=== PATIENT | male | born 1950 | race Caucasian/White ===

== ENCOUNTER 2022-06-18 07:52 | Observation (INO) ==
[2022-06-18 08:12] LABS: Basophils # (auto) 0.06 K/uL (0-0.2); Basophils % (auto) 0.9 %; Eosinophils % (auto) 7.3 %; Hematocrit (blood only) 44.2 % (40.1-51.0); Hemoglobin 15.6 g/dl (14.0-18.0); Immature Granulocytes # (auto) 0.02 K/uL (0.00-0.02); Immature Granulocytes % (auto) 0.3 %; Lymphocytes # (auto) 1.59 K/uL (1.2-3.4); Lymphocytes % (auto) 23.3 %; Mean Corpuscular Hemoglobin 30.9 pg (25.0-34.0); Mean Corpuscular Hgb Conc 35.3 g/dL (32.0-36.0); Mean Corpuscular Volume 87.5 fL (80.0-100.0); Mean Platelet Volume 9.7 fL (9.4-12.4); Monocytes # (auto) 0.63 K/uL (0.24-0.82); Monocytes % (auto) 9.2 %; Neutrophils # (auto) 4.03 K/uL (1.4-6.5); Platelet Count 251 K/uL (130-400); RDW Coefficient of Variation 13.3 % (11.5-14.5); RDW Standard Deviation 42.1 fL (36.4-46.3); Red Blood Count 5.05 M/uL (4.63-6.08); White Blood Count 6.83 K/ul (4.8-10.8)
--- NOTE | 2022-06-18 08:12 | Emergency Department Note ---
Impression & Plan Chest pain ED Provider Note NAME: RED BONNER AGE: 72 SEX: M : 1950 ARRIVES VIA: Ambulance INFORMANT: Patient, EMS ED PROVIDER(S): Laureano Martinez DO CHIEF COMPLAINT: Chest pain HPI: The patient is a 72-year-old male who presented to the emergency department for an evaluation of chest pain. The patient states he been having intermittent episodes of chest pain over the course the last 5 days. He does have a history of coronary artery bypass. He has not had a stress test or heart catheterization recently. He denies having any fever or cough. He denies having any nausea or vomiting. The patient himself states he has no chest pain at this time. He was treated with 4 baby aspirin and nitroglycerin prior to arrival. He states the pain was a pressure over the left side of his chest. The patient recently was evaluated preoperatively for knee replacement. He is scheduled to have knee replacement in 1 week. He denies having any lower extremity swelling. He denies having orthopnea. The patient denies having any abdominal pain nausea vomiting or diarrhea. ROS: See above HPI for pertinent positives & negatives. A total of 10 systems reviewed and were otherwise negative. PAST MEDICAL HISTORY: See Below PAST SURGICAL HISTORY: See Below FAMILY HISTORY: See Below SOCIAL HISTORY: See Below HOME MEDICATIONS: See Below ALLERGIES: See Below VITALS: See Below PHYSICAL EXAMINATION: GENERAL: Patient is awake alert in no acute distress patient is resting comfortably and showing no signs of anxiety EYES: The conjunctivae are clear. The pupils are round and reactive. EARS, NOSE, MOUTH AND THROAT: The nose is without any evidence of any deformity. NECK: The neck is nontender and supple. RESPIRATORY: Normal respiratory effort is noted there is no evidence of wheezing rhonchi or rales CARDIOVASCULAR: Regular rate and rhythm noted there no murmurs rubs or gallops normal S1 normal S2. GASTROINTESTINAL: The abdomen is soft. Abdomen is nontender. MUSCULOSKELETAL/EXTREMITIES: There is no evidence of gross deformity full range of motion is noted in the hips and shoulders. SKIN: There is no obvious evidence of any rash. There are no petechiae, pallor or cyanosis noted. NEUROLOGIC: Patient is awake alert and oriented x3 MEDICAL DECISION MAKING: The patient is a 72-year-old male who presented to the emergency department for an evaluation of chest pain. The patient describes anterior chest pain which did improve with nitroglycerin and aspirin. He does have a history of coronary artery bypass grafting in the past. I discussed the patient's laboratory and radiographic studies with him. I discussed the limitations of the emergency department work-up for chest pain with him. Ultimately given his risk factors I discussed his case with his primary heavy coil winder. The patient was felt to be a good candidate for inpatient management as well as stress testing. For this reason I discussed his case with the on-call [facility]. They have agreed to evaluate the patient in the emergency department for further management and disposition. Triage Nursing notes reviewed. Prior medical records reviewed Vital Signs: reviewed and remarkable for no significant abnormalities Differential diagnosis: Cardiac ischemia, aortic dissection, pulmonary embolism, pneumothorax, pneumonia, pericarditis, myocarditis, esophageal rupture, GERD, cholecystitis, pancreatitis, musculoskeletal, as well as other pathologies. ER treatment provided: See below Diagnostics interpreted by me: ECG: EKG was obtained in the emergency department. My interpretation is sinus bradycardia 59 bpm. There is no ectopy. Left bundle branch block pattern was favored. This was compared to a tracing from June 12, 2022. No changes were noted. A prehospital EKG was also reviewed. My interpretation is sinus rhythm at 62 bpm. There is no ectopy. No acute ST segment elevation was noted but there was some depressions noted in the low lateral leads. Cardiac Monitoring: An order was placed for continuous cardiac monitoring. The monitor shows a rate of 57 bpm with sinus bradycardia. Laboratory studies: As stated above and show below. Imaging studies: See below Consultation(s): I discussed this case with Dr. Cheng who is the patient's primary heavy coil winder I discussed this case with Dr. Celaya who is on for [facility] Past Med/Surg History Medical History (Updated 06/18/22 @ 14:23 by Laureano Martinez DO) Abdominal aortic aneurysm s/p repair (2018) Anxiety Coronary artery disease s/p CABG x2 (1993) GERD (gastroesophageal reflux disease) Hyperlipidemia Kidney stones PASSED ON OWN Myocardial Infarction 1993 Surgical History History of cardiac cath Most recent > no stents History of colonoscopy 2021 History of open heart surgery CABG x2 (1993) S/P AAA (abdominal aortic aneurysm) repair 2018 ([facility]/[place], [place]) S/P appendectomy Family History Father Heart disease Mother Mental disorder Brother Cancer Uncle Family history of diabetes mellitus Social History Smoking Status: Never smoker Second Hand Exposure: No; Do You Dip or Chew Tobacco: No; Tobacco Cessation Education Requested by Patient: No Hx Alcohol Use: Yes Alcohol type: beer Hx Substance Use: No Preferred Language: Finnish Communication Ability: Effective Monitor Technician Required: No Beliefs That Will Affect Care: None Current Living Situation: Spouse current occupational status: retired Other Information That Helps Us Care for You: No Feels Safe at Home: Yes Safety Concerns: Feels Safe At This Time Assistive Devices: None Allergies Allergies Allergy/AdvReac Type Severity Reaction Status Date / Time No Known Allergies Allergy Verified 05/22/22 09:34 Home Meds Home Medications Medication Instructions Recorded Confirmed aspirin 81 mg tablet,delayed 81 mg PO QPM 03/05/21 05/22/22 release coenzyme Q10 100 mg capsule 100 mg PO QAM 03/05/21 05/22/22 gabapentin 100 mg capsule 100 mg PO TID 03/05/21 05/22/22 glucosamine-chondroitin 250 mg-200 1 tab PO QAM 03/05/21 05/22/22 mg tablet (Osteo Bi-Flex) rosuvastatin 10 mg tablet 10 mg PO QPM 03/05/21 05/22/22 diclofenac sodium 1 % topical gel 2 g topical QID PRN Pain 05/22/22 05/22/22 fluticasone propionate 50 2 spray intranasal QAM 05/22/22 05/22/22 mcg/actuation nasal spray,suspension ibuprofen 200 mg capsule 200 mg PO BID 05/22/22 05/22/22 multivitamin 1 tab PO QAM 05/22/22 05/22/22 Results & Data (ED) Vital Signs Vital Signs - 24 hr 06/18/22 08:09 06/18/22 08:09 06/18/22 10:06 Temperature 36.8 C Temperature Source Oral Pulse Rate 66 66 Pulse Rate [Finger] 54 L Respiratory Rate 20 18 18 Respiratory Depth Normal Blood Pressure 131/79 Blood Pressure [Right Arm] 128/82 Blood Pressure Mean 96 Blood Pressure Mean [Right Arm] 97 Blood Pressure Position [Right Arm] Semi-fowlers Pulse Oximetry 98 98 96 Oxygen Delivery Method Room Air Room Air Room Air Sepsis Recent Fever Within 48 Hours No Sepsis New/Unexplained Change in Mental Status No Sepsis Action Taken by Nursing No Action Required Home Medications Current Medication List: was personally reviewed by me Laboratory Data Attestation: I reviewed the patient's lab results. Result diagrams: 06/18/22 08:00 06/18/22 08:00 Lab Results 06/18/22 06/18/22 06/18/22 Range/Units 08:00 08:00 08:00 WBC 6.83 (4.8-10.8) K/ul RBC 5.05 (4.63-6.08) M/uL Hgb 15.6 (14.0-18.0) g/dl Hct 44.2 (40.1-51.0) % MCV 87.5 (80.0-100.0) fL MCH 30.9 (25.0-34.0) pg MCHC 35.3 (32.0-36.0) g/dL RDW Std Deviation 42.1 (36.4-46.3) fL RDW Coeff of Viki 13.3 (11.5-14.5) % Plt Count 251 (130-400) K/uL MPV 9.7 (9.4-12.4) fL Immature Gran % (Auto) 0.3 % Neut % (Auto) 59.0 % Lymph % (Auto) 23.3 % [place] % (Auto) 9.2 % Eos % (Auto) 7.3 % Baso % (Auto) 0.9 % Neut # (Auto) 4.03 (1.4-6.5) K/uL Lymph # (Auto) 1.59 (1.2-3.4) K/uL [place] # (Auto) 0.63 (0.24-0.82) K/uL Eos # (Auto) 0.50 (0-0.50) K/uL Baso # (Auto) 0.06 (0-0.2) K/uL Immature Gran # (Auto) 0.02 (0.00-0.02) K/uL PT 10.9 (9.0-12.0) Seconds INR 1.0 (0.9-1.1) APTT 25.1 (21.0-31.0) Seconds PTT Ratio 0.9 Sodium 138 (136-145) mmol/L Potassium 4.0 (3.5-5.1) mmol/L Chloride 105 (98-107) mmol/L Carbon Dioxide 26 (21-32) mmol/L Anion Gap 7 (3-11) BUN 19 (6-23) mg/dl Creatinine 1.07 (0.6-1.4) mg/dl Est Cr Clr Drug Dosing 76.4 ml/min Est GFR ( Amer) 79.4 ml/min Est GFR (Non-Af Amer) 68.5 ml/min BUN/Creatinine Ratio 17.8 (10-20) Glucose 104 H (70-99(Fasting)) mg/dl Calcium 9.3 (8.5-10.1) mg/dl Total Bilirubin 0.9 (0.2-1.0) mg/dl AST 25 (13-39) U/L ALT 30 (7-52) U/L Alkaline Phosphatase 63 (34-104) U/L Troponin I High Sens 7.8 (0-20) pg/ml Total Protein 7.4 (6.0-8.3) gm/dl Albumin 4.5 (3.4-5.0) gm/dl Globulin 2.9 (2.5-4.0) gm/dl Albumin/Globulin Ratio 1.6 (0.9-2) Lipase 16 (11-82) U/L SARS-CoV-2, RNA, NAAT (NEGATIVE) 06/18/22 06/18/22 Range/Units 08:08 10:21 WBC (4.8-10.8) K/ul RBC (4.63-6.08) M/uL Hgb (14.0-18.0) g/dl Hct (40.1-51.0) % MCV (80.0-100.0) fL MCH (25.0-34.0) pg MCHC (32.0-36.0) g/dL RDW Std Deviation (36.4-46.3) fL RDW Coeff of Viki (11.5-14.5) % Plt Count (130-400) K/uL MPV (9.4-12.4) fL Immature Gran % (Auto) % Neut % (Auto) % Lymph % (Auto) % One[place] % (Auto) % Eos % (Auto) % Baso % (Auto) % Neut # (Auto) (1.4-6.5) K/uL Lymph # (Auto) (1.2-3.4) K/uL [place] # (Auto) (0.24-0.82) K/uL Eos # (Auto) (0-0.50) K/uL Baso # (Auto) (0-0.2) K/uL Immature Gran # (Auto) (0.00-0.02) K/uL PT (9.0-12.0) Seconds INR (0.9-1.1) APTT (21.0-31.0) Seconds PTT Ratio Sodium (136-145) mmol/L Potassium (3.5-5.1) mmol/L Chloride (98-107) mmol/L Carbon Dioxide (21-32) mmol/L Anion Gap (3-11) BUN (6-23) mg/dl Creatinine (0.6-1.4) mg/dl Est Cr Clr Drug Dosing ml/min Est GFR ( Amer) ml/min Est GFR (Non-Af Amer) ml/min BUN/Creatinine Ratio (10-20) Glucose (70-99(Fasting)) mg/dl Calcium (8.5-10.1) mg/dl Total Bilirubin (0.2-1.0) mg/dl AST (13-39) U/L ALT (7-52) U/L Alkaline Phosphatase (34-104) U/L Troponin I High Sens 6.1 (0-20) pg/ml Total Protein (6.0-8.3) gm/dl Albumin (3.4-5.0) gm/dl Globulin (2.5-4.0) gm/dl Albumin/Globulin Ratio (0.9-2) Lipase (11-82) U/L SARS-CoV-2, RNA, NAAT NEGATIVE (NEGATIVE) Administered Medications Gabapentin (Gabapentin 100 Mg Cap) 100 mg PO TID [facility] Stop: 07/18/22 13:59 Last Admin: 06/18/22 15:16 Dose: 100 mg Documented By: ZS Rosuvastatin Calcium (Rosuvastatin Calcium 10 Mg Tab) 10 mg PO QAM MARY Stop: 07/18/22 13:51 Last Admin: 06/18/22 15:16 Dose: 10 mg Documented By: ZS Discontinued Medications Famotidine (Famotidine 20 Mg Tab) 20 mg PO NOW STA Stop: 06/18/22 11:05 Last Admin: 06/18/22 11:40 Dose: 20 mg Documented By: TRH Pantoprazole Sodium (Pantoprazole 40 Mg Tab) 40 mg PO NOW STA Stop: 06/18/22 11:05 Last Admin: 06/18/22 11:40 Dose: 40 mg Documented By: TRH Imaging Data Radiologist's Impression: Chest X-Ray 06/18/22 07:58 XR chest 1V portable HISTORY: Atypical Chest Pain COMPARISON: Chest 06/09/2022. FINDINGS: No pneumothorax. No pleural effusions. There are low lung volumes. The cardiac silhouette remains top normal in size. There are poststernotomy changes and a tortuous thoracic aorta, unchanged. A few bibasilar linear densities favor subsegmental atelectasis or scarring. This remains unchanged. Otherwise, no new focal lung consolidations to suggest a pneumonia. No evidence for pulmonary edema. IMPRESSION: No significant change compared to the prior study. No acute process. ACT 112: Negative or not required by law. Electronically signed by: Olvin Bangura M.D. 06/18/2022 8:35 AM Discharge Plan Visit Data Chief Complaint: Chest Pain Stated Complaint: CHEST PRESSURE ED Provider: Laureano Martinez Discharge Problem: Chest pain Patient Disposition: Admitted As Inpatient Discharge Instructions Interventions: ED Discharge Assessment Last Done: 06/18/22 13:33 : Chest pain Qualifiers: Chest pain type: unspecified Qualified Code(s): R07.9 - Chest pain, unspecified
[2022-06-18 08:35] LABS: Partial Thromboplastin Ratio 0.9; Partial Thromboplastin Time 25.1 Seconds (21.0-31.0); Prothrombin Time 10.9 Seconds (9.0-12.0)
--- NOTE | 2022-06-18 08:36 | XRay Report ---
XR chest 1V portable HISTORY: Atypical Chest Pain COMPARISON: Chest 06/09/2022. FINDINGS: No pneumothorax. No pleural effusions. There are low lung volumes. The cardiac silhouette r emains top normal in size. There are poststernotomy changes and a tortuous thoracic aorta, unchanged. A few bibasilar linear densities favor subsegmental atelectasis or scarring. This remains unchanged. Otherwise, no new focal lung consolidations to suggest a pneumonia. No evidence for pulmonary edema. IMPRESSION: No significant change compared to the prior study. No acute process. ACT 112: Negative or not required by law. Electronically signed by: Olvin Bangura M.D. 06/18/2022 8:35 AM
[2022-06-18 08:40] LABS: Albumin Globulin Ratio 1.6 (0.9-2); Albumin Level 4.5 gm/dl (3.4-5.0); BUN Creatinine Ratio 17.8 (10-20); Bilirubin,Total 0.9 mg/dl (0.2-1.0); Calcium 9.3 mg/dl (8.5-10.1); Creatinine Clr Calc Pharmacy 76.4 ml/min; Est GFR (African American) 79.4 ml/min; Est GFR (Non-African American) 68.5 ml/min; Globulin 2.9 gm/dl (2.5-4.0); Total Protein 7.4 gm/dl (6.0-8.3); Troponin I High Sensitivity 7.8 pg/ml (0-20)
--- NOTE | 2022-06-18 10:18 | History & Physical Report ---
Date of Service June 18, 2022 History of Present Illness Primary Care Provider: Lori Horton MD Peter Mcgrath is a 72-year-old male with past medical history of CAD s/p CABG, arthritis, and peripheral neuropathy who presents today with chest pain. Allergies Allergy/AdvReac Type Severity Reaction Status Date / Time No Known Allergies Allergy Verified 05/22/22 09:34 Home Medications Medication Instructions Recorded Confirmed Type aspirin 81 mg tablet,delayed 81 mg PO QPM 03/05/21 05/22/22 History release coenzyme Q10 100 mg capsule 100 mg PO QAM 03/05/21 05/22/22 History gabapentin 100 mg capsule 100 mg PO TID 03/05/21 05/22/22 History glucosamine-chondroitin 250 mg-200 1 tab PO QAM 03/05/21 05/22/22 History mg tablet (Osteo Bi-Flex) rosuvastatin 10 mg tablet 10 mg PO QPM 03/05/21 05/22/22 History diclofenac sodium 1 % topical gel 2 g topical QID PRN Pain 05/22/22 05/22/22 History fluticasone propionate 50 2 spray intranasal QAM 05/22/22 05/22/22 History mcg/actuation nasal spray,suspension ibuprofen 200 mg capsule 200 mg PO BID 05/22/22 05/22/22 History multivitamin 1 tab PO QAM 05/22/22 05/22/22 History Past Med/Surg History Medical History Abdominal aortic aneurysm s/p repair (2018) Anxiety Coronary artery disease s/p CABG x2 (1993) GERD (gastroesophageal reflux disease) Hyperlipidemia Kidney stones PASSED ON OWN Myocardial Infarction 1993 Surgical History History of cardiac cath Most recent > no stents History of colonoscopy 2021 History of open heart surgery CABG x2 (1993) S/P AAA (abdominal aortic aneurysm) repair 2018 ([facility]/[place], [place]) S/P appendectomy Family History Father Heart disease Mother Mental disorder Brother Cancer Uncle Family history of diabetes mellitus Social History Smoking Status: Never smoker Second Hand Exposure: No; Hx Alcohol Use: Yes Alcohol type: beer Hx Substance Use: No Preferred Language: Israeli Communication Ability: Effective Flexo Operator Required: No Beliefs That Will Affect Care: None Current Living Situation: Spouse current occupational status: retired Feels Safe at Home: Yes Assistive Devices: Brace/Splint/Immobilizer, Cane, Glasses and Hearing Aid - Bilateral Results & Data Results & Data ([facility]) Vital Signs (Past 12 Hours) Vital Signs Temp Pulse Pulse Resp BP BP Pulse Ox 06/18/22 10:06 54 L 18 128/82 96 06/18/22 08:09 66 18 98 06/18/22 08:09 36.8 C 66 20 131/79 98 O2 Del Method 06/18/22 10:06 Room Air 06/18/22 08:09 Room Air 06/18/22 08:09 Room Air PG Care Time/CCT Total # of Minutes Spent Total Time Spent with Patient: Total time spent is greater than 50% in coordination of care (as documented) at patient's floor/unit and/or counseling patient: Coding
--- NOTE | 2022-06-18 10:26 | History & Physical Report ---
Date of Service June 18, 2022 Assessment & Plan (1) Chest pain, rule out acute myocardial infarction: Plan: Low likelihood of cardiac chest pain given history and negative high sensitivity troponins. Had nitroglycerin and aspirin en route. Serial troponins q6h over the next 24 hours. NM Frances per his diagram clerk recommendation given his upcoming operation - discussed with Dr Cheng on admission. Suspect can be discharged tomorrow if workup is negative. More likely GERD related to increased recent stress - will give pantoprazole 40mg PO now then daily and famotidine 20mg PO now (for more rapid relief). (2) Peripheral neuropathy: Plan: Reportedly idiopathic Continue his usual gabapentin dosing (3) GERD (gastroesophageal reflux disease): Plan: Start pantoprazole 40mg PO daily Famotidine 20mg PO Plan VTE Prophylaxis - SCDs Diet - heart healthy, NPO at midnight Disposition - observation status to med/tele Admission and Anticipated Discharge Date Admission Date: June 18, 2022 History of Present Illness Chief Complaint: Chest pain Primary Care Provider: Lori Horton MD Peter Mcgrath is a 72 year old male with known coronary artery disease and CABG x2 in 1993 who presents to the ER with chest pain. He reports 5 days of feeling anxious with nervousness, reduced sleep and burping secondary to his upcoming hip operation next Wednesday and his sister living in [place] with the current hurricane. He had requested medication for anxiety but his primary care physician did not want to prescribe anything. He reports being up most of last night and not sleeping well. This morning after waking up around 5am he noticed left sided chest pain. Severity 4-5/10, no radiation, pinching/tightening feeling. He reports this felt different to his prior heart attack and his GERD. Initially he didn't take anything for this until his gave him two 81mg PO aspirin. The pain lasted for 3 hours until he received a nitroglycerin tab on route to the hospital. He reports associated burping which was also present with his prior heart attack. He reports not taking ibuprofen for the last week in preparation for his hip operation but has been taking all his other medication regularly. In the ER, initial troponin was negative, EKG showed no ischemic changes. His case was discussed with his diagram clerk who recommended nuclear medicine lexiscan to assess risk of upcoming operation. Allergies Allergy/AdvReac Type Severity Reaction Status Date / Time No Known Allergies Allergy Verified 05/22/22 09:34 Home Medications Medication Instructions Recorded Confirmed Type aspirin 81 mg tablet,delayed 81 mg PO QPM 03/05/21 05/22/22 History release coenzyme Q10 100 mg capsule 100 mg PO QAM 03/05/21 05/22/22 History gabapentin 100 mg capsule 100 mg PO TID 03/05/21 05/22/22 History glucosamine-chondroitin 250 mg-200 1 tab PO QAM 03/05/21 05/22/22 History mg tablet (Osteo Bi-Flex) rosuvastatin 10 mg tablet 10 mg PO QPM 03/05/21 05/22/22 History diclofenac sodium 1 % topical gel 2 g topical QID PRN Pain 05/22/22 05/22/22 History fluticasone propionate 50 2 spray intranasal QAM 05/22/22 05/22/22 History mcg/actuation nasal spray,suspension ibuprofen 200 mg capsule 200 mg PO BID 05/22/22 05/22/22 History multivitamin 1 tab PO QAM 05/22/22 05/22/22 History Past Med/Surg History Medical History (Updated 06/18/22 @ 10:39 by Edwin Patterson MD) Abdominal aortic aneurysm s/p repair (2018) Anxiety Coronary artery disease s/p CABG x2 (1993) GERD (gastroesophageal reflux disease) Hyperlipidemia Kidney stones PASSED ON OWN Myocardial Infarction 1993 Surgical History History of cardiac cath Most recent > no stents History of colonoscopy 2021 History of open heart surgery CABG x2 (1993) S/P AAA (abdominal aortic aneurysm) repair 2019 ([facility]/[place], [place]) S/P appendectomy Family History Father Heart disease Mother Mental disorder Brother Cancer Uncle Family history of diabetes mellitus Social History Smoking Status: Never smoker Second Hand Exposure: No; Hx Alcohol Use: Yes Alcohol type: beer Hx Substance Use: No Preferred Language: Setswana Communication Ability: Effective Process Control Technician Required: No Beliefs That Will Affect Care: None Current Living Situation: Spouse current occupational status: retired Feels Safe at Home: Yes Assistive Devices: Brace/Splint/Immobilizer, Cane, Glasses and Hearing Aid - Bilateral Review of Systems Review of Systems: All systems reviewed & are unremarkable except as noted in HPI & below Reports phlegm coming from his throat for the last year. Physical Exam Constitutional: WD/WN, vitals as above Eyes: + anicteric sclerae; normal pupil size ENMT: external ear and nose normal, oropharynx normal Neck: trachea midline, no thyromegaly Respiratory: normal respiratory effort, lungs clear to auscultation Cardiovascular: RRR, no murmur, no edema Gastrointestinal (Abdomen): normal bowel sounds, soft, nontender, no hepatosplenomegaly Musculoskeletal: no cyanosis or clubbing, extremities motor strength 5/5 Skin: no rashes, warm and dry Neurologic: moves all extremities and awake; not confused Psychiatric: A+Ox3, euthymic affect Genitourinary: no CVA tenderness Results & Data Results & Data ([facility]) Vital Signs (Past 12 Hours) Vital Signs Temp Pulse Pulse Resp BP BP Pulse Ox 06/18/22 10:06 54 L 18 128/82 96 06/18/22 08:09 66 18 98 06/18/22 08:09 36.8 C 66 20 131/79 98 O2 Del Method 06/18/22 10:06 Room Air 06/18/22 08:09 Room Air 06/18/22 08:09 Room Air Laboratory Results Abnormal lab results 06/18/22 Range/Units 08:00 Glucose 104 H (70-99(Fasting)) mg/dl Diagnostic Findings XR chest 1V portable HISTORY: Atypical Chest Pain COMPARISON: Chest 06/09/2022. FINDINGS: No pneumothorax. No pleural effusions. There are low lung volumes. The cardiac silhouette remains top normal in size. There are poststernotomy changes and a tortuous thoracic aorta, unchanged. A few bibasilar linear densities favor subsegmental atelectasis or scarring. This remains unchanged. Otherwise, no new focal lung consolidations to suggest a pneumonia. No evidence for pulmonary edema. IMPRESSION: No significant change compared to the prior study. No acute process. Medications Administered ER Medications Given: None ECG Indication: chest pain Rate (beats per minute): 59 Rhythm: sinus bradycardia Findings: no acute ischemic change Comparison ECG Date: from (June 09, 2022) Change: no significant change Code Status & VTE Plan Code Status Full VTE Prophylaxis Plan VTE Prophylaxis will be ordered: Yes Reason for no VTE drug order: Treatment not indicated PG Care Time/CCT Total # of Minutes Spent Total Time Spent with Patient: Total time spent is greater than 50% in coordination of care (as documented) at patient's floor/unit and/or counseling patient: Coding Level of Care Code INT OBSERVATION CARE 70M LVL 3 Diagnoses Chest pain, rule out acute myocardial infarction R07.9 Peripheral neuropathy G62.9 GERD (gastroesophageal reflux disease) K21.9
[2022-06-18] MEDS ORDERED: PANTOprazole 40 MG TAB PO STA (11:04)
[2022-06-18] MEDS ORDERED: FAMOTIDINE 20 MG TAB PO STA (11:04)
[2022-06-18] MEDS ORDERED: ACETAMINOPHEN 325 MG TAB PO PRN (13:52)
[2022-06-18] MEDS ORDERED: POLYETHYLENE (MIRALAX) 17 GM PACK PO PRN (13:52)
[2022-06-18] MEDS ORDERED: ONDANSETRON INJ 2 MG/ML 2 ML VIAL IV PRN (13:52)
[2022-06-18] MEDS: ROSUVASTATIN CALCIUM 10 MG TAB PO SCH (15:16)
[2022-06-18] MEDS: GABAPENTIN 100 MG CAP PO SCH ×2 (15:16→20:34)
[2022-06-18] MEDS ORDERED: ASPIRIN 81 MG ECTAB PO SCH (21:00)
[2022-06-18] MEDS ORDERED: IBUPROFEN 200 MG TAB PO SCH (21:00)
--- NOTE | 2022-06-18 21:32 | Electrocardiogram Report ---
Test Reason : Blood Pressure : / mmHG Vent. Rate : 059 BPM Atrial Rate : 059 BPM P-R Int : 190 ms QRS Dur : 116 ms QT Int : 438 ms P-R-T Axes : 012 -36 068 degrees QTc Int : 433 ms Sinus bradycardia Left axis deviation Non-specific intra-ventricular conduction delay Abnormal ECG When compared with ECG of 09-JUN-2022 16:16, No significant change was found Confirmed by Flakito Reynolds ([id number]) on 06/18/2022 9:32:20 PM Referred By: Confirmed By:Flakito Reynolds
[2022-06-19] MEDS ORDERED: REGADENOSON 0.4 MG/5 ML SYR IV ONE (07:45)
[2022-06-19] MEDS: GABAPENTIN 100 MG CAP PO SCH ×2 (07:48→13:32)
[2022-06-19] MEDS: ROSUVASTATIN CALCIUM 10 MG TAB PO SCH (07:49)
[2022-06-19] MEDS ORDERED: FLUTICASONE PROPIONATE NA SPR 16 GM BTL NAE SCH (09:00)
[2022-06-19] MEDS ORDERED: NON-FORMULARY MEDICATION (Coenzyme Q10 100 mg capsule) PO SCH (09:00)
[2022-06-19] MEDS ORDERED: NON-FORMULARY MEDICATION (Glucosamine-Chondroitin [Osteo Bi-Flex] 250-200 mg tablet) PO SCH (09:00)
[2022-06-19] MEDS ORDERED: MULTIVITAMIN TAB PO SCH (09:00)
--- NOTE | 2022-06-19 14:42 | Hospitalist Progress Note ---
Date of Service June 19, 2022 Assessment & Plan (1) Chest pain, rule out acute myocardial infarction: Plan: Low likelihood of cardiac chest pain given history and negative high sensitivity troponins. Had nitroglycerin and aspirin en route. Serial troponins q6h over the next 24 hours negative NM Lexiscan has been done , official report pending (2) Peripheral neuropathy: Plan: Reportedly idiopathic Continue his usual gabapentin dosing (3) GERD (gastroesophageal reflux disease): Plan: Start pantoprazole 40mg PO daily Famotidine 20mg PO Plan VTE Prophylaxis - SCDs Diet - heart healthy, NPO at midnight Disposition - observation status to med/tele Admission and Anticipated Discharge Date Admission Date: June 18, 2022 Subjective patient seen and examined, said his chest pain has resolved Review of Systems Review of Systems: All systems reviewed are negative, apart from the ones contained in the history. Physical Exam Physical Exam: The patient is awake, alert and oriented 3, well developed and well nourished, normocephalic and atraumatic, lying in bed and in no acute distress. HEENT--PERRL, EOMI, mucous membranes and oropharynx mildly dry Neck--supple. No JVD. No bruits. Thyroid normal, trachea midline, no adenopathy. Heart--normal S1 and S2. No murmurs, rubs or gallops. Lungs--clear bilaterally, no respiratory distress, no accessory muscle use. Abdomen--normal bowel sounds and soft. Mild epigastric and left sided abdominal pain Extremities--no cyanosis or clubbing. No edema. Dermatologic--normal skin turgor, normal color, no abnormal lymph nodes, no rash. Neurologic--cranial nerves II through XII grossly intact. Rheumatologic--normal range of motion. Psychiatric--normal affect. Results & Data Results & Data ([facility]) Vital Signs (Past 12 Hours) Vital Signs Temp Pulse Pulse Resp BP Pulse Ox O2 Del Method 06/19/22 08:00 64 06/19/22 06:34 97.7 F 61 18 108/75 97 Room Air 06/19/22 03:37 97.9 F 55 L 16 112/64 98 Room Air PG Care Time/CCT Total # of Minutes Spent Total Time Spent with Patient: Total time spent is greater than 50% in coordination of care (as documented) at patient's floor/unit and/or counseling patient: Coding Level of Care Code 17618 Subseq Obs Care Lvl 2 Diagnoses Chest pain, rule out acute myocardial infarction R07.9 Peripheral neuropathy G62.9 GERD (gastroesophageal reflux disease) K21.9 Time Spent (min) 35
--- NOTE | 2022-06-19 14:45 | Myocardial Perfusion Study ---
Date of Service June 19, 2022 Myocardial Perfusion Study Blk Myocardial Perfusion Study Report [place] Act 112: Negative Procedure: 1. Myocardial perfusion study performed in multiple views/images 2. Lexiscan pharmacologic stress ECG Indications: 1. Chest pain Ordering physician: Edwin Patterson Procedural details: For the stress portion of the study, Lexiscan 0.4 mg was intravenously administered followed by a saline flush. This was followed by 33.2 mCi of technetium 99m Cardiolite, injected at 9:05 a.m. on 06/19/2022. 30 minutes following the injection, imaging of the heart was performed in multiple projections. For the rest portion of the study, 10.2 mCi technetium 99m Cardiolite was injected intravenously at 7:34 a.m. on 06/19/2022. 1 hour following the injection, imaging of the heart was performed in the same projections. Lexiscan stress ECG: Continuous ECG monitoring was performed with supervision and interpretation. Resting ECG demonstrated: Sinus rhythm 64 beats per minute. Maximum heart rate: Ninety-two bpm Maximal, age-predicted heart rate: 62 % Resting blood pressure: 115/79 mmHg Maximum blood pressure: 123/[address] changes: None Arrhythmia: None Symptoms: Mild woozy and warm sensation Findings: Rotating raw imaging demonstrated no significant lung uptake. There is no significant motion artifact. Heart size appeared normal. Myocardial perfusion demonstrated a small area of moderately reduced uptake involving the apex, which appeared to be fixed in post stress and rest imaging. There was no significant reversible defect to suggest ischemia. There was a hot spot in the anterolateral wall in post stress and rest images. Other wall segments appear to have normal perfusion. Ejection fraction: 52% Wall motion: Severe hypokinesis to akinesis of the apex. Otherwise, normal wall motion. No significant transient ischemic dilation. Impression: 1. Negative myocardial perfusion study for ischemia. 2. Apical infarct. 3. Severe hypokinesis to akinesis of the apex. 4. Normal LV systolic function. EF 52%. 5. Lexiscan induced wooziness/warm sensation. 6. Nondiagnostic Lexiscan ECG. [facility] Myocardial perfusion code Procedure Code Procedure 1: Myocardial Perfusion Codes: 24204 Cardiovascular Stress Test, multiple Procedure 2: Myocardial Perfusion Codes: 36364 Cardiovascular Stress Test, supervision only Procedure 3: Myocardial Perfusion Codes: 36056 Cardiovascular Stress Test, interpretat ion and report
--- NOTE | 2022-06-19 15:38 | Discharge Summary ---
Date of Service June 19, 2022 Admission HPI Per Admitting Provider Peter Mcgrath is a 72 year old male with known coronary artery disease and CABG x2 in 1993 who presents to the ER with chest pain. He reports 5 days of feeling anxious with nervousness, reduced sleep and burping secondary to his upcoming hip operation next Wednesday and his sister living in [place] with the current hurricane. He had requested medication for anxiety but his primary care physician did not want to prescribe anything. He reports being up most of last night and not sleeping well. This morning after waking up around 5am he noticed left sided chest pain. Severity 4-5/10, no radiation, pinching/tightening feeling. He reports this felt different to his prior heart attack and his GERD. Initially he didn't take anything for this until his gave him two 81mg PO aspirin. The pain lasted for 3 hours until he received a nitroglycerin tab on route to the hospital. He reports associated burping which was also present with his prior heart attack. He reports not taking ibuprofen for the last week in preparation for his hip operation but has been taking all his other medication regularly. In the ER, initial troponin was negative, EKG showed no ischemic changes. His case was discussed with his surgical training specialist who recommended nuclear medicine lexiscan to assess risk of upcoming operation. Principal Diagnosis chest pain Discharge Exam The patient is awake, alert and oriented 3, well developed and well nourished, normocephalic and atraumatic, lying in bed and in no acute distress. HEENT--PERRL, EOMI, mucous membranes and oropharynx mildly dry Neck--supple. No JVD. No bruits. Thyroid normal, trachea midline, no adenopathy. Heart--normal S1 and S2. No murmurs, rubs or gallops. Lungs--clear bilaterally, no respiratory distress, no accessory muscle use. Abdomen--normal bowel sounds and soft. Mild epigastric and left sided abdominal pain Extremities--no cyanosis or clubbing. No edema. Dermatologic--normal skin turgor, normal color, no abnormal lymph nodes, no rash. Neurologic--cranial nerves II through XII grossly intact. Rheumatologic--normal range of motion. Psychiatric--normal affect. Discharge Data Allergies Allergy/AdvReac Type Severity Reaction Status Date / Time No Known Allergies Allergy Verified 05/22/22 09:34 Consultations 06/18/22 09:33 ED Decision to Admit Stat Hospital Course (1) Chest pain, rule out acute myocardial infarction: Low likelihood of cardiac chest pain given history and negative high sensitivity troponins. Had nitroglycerin and aspirin en route. Serial troponins q6h over the next 24 hours negative NM Lexiscan was negative for ischemia (2) Peripheral neuropathy: Reportedly idiopathic Continue his usual gabapentin dosing (3) GERD (gastroesophageal reflux disease): Start pantoprazole 40mg PO daily Famotidine 20mg PO Plan VTE Prophylaxis - SCDs Diet - heart healthy, NPO at midnight Disposition - observation status to med/tele Total Time Total Time Spent Total Time Spent (In Minutes): 35 Discharge Plan Discharge Items Patient Disposition: Home - Self-Care Reason For Visit: CHEST PAIN Discharge Diagnosis: Non cardiac chest pain Activity: Resume your previous activity Non-emergency contact: Primary Care Provider and [employer] S[employer]er Call non-emergency contact if: you have any medication questions Follow-up/Referrals: Lori Horton MD [Primary Care Provider] - Diet: Regular Addtl Attending Provider Instructions: please make appointment to follow up with your regular PCP and surgical training specialist Pending Studies at Discharge: No Stand-Alone Forms: My [employer], Smoking Cessation Medications and DC Order Prescriptions: Continued rosuvastatin 10 mg tablet 10 mg PO QPM gabapentin 100 mg capsule 100 mg PO TID coenzyme Q10 100 mg capsule 100 mg PO QAM glucosamine-chondroitin [Osteo Bi-Flex] 250-200 mg tablet 1 tab PO QAM aspirin 81 mg tablet,delayed release (DR/EC) 81 mg PO QPM multivitamin Tablet 1 tab PO QAM ibuprofen 200 mg Capsule 200 mg PO BID fluticasone propionate 50 mcg/actuation [place],Suspension 2 spray INTRANASAL QAM Rx Instructions: administer into each nostril diclofenac sodium 1 % Gel 2 g TOPICAL QID PRN (Reason: Pain) Rx Instructions: apply to single elbow, wrist or hand; for hand includes palm/fingers/back of hand Discharge Orders: Discharge Order (Routine); Ordered 06/19/22 Ordered By: Carly Otto Admission Data Admit Date/Time: 06/18/22 10:22 Attending Provider: Carly Otto Admit Provider: Mary Ann Egan Primary Care Provider: Lori Horton Other Providers: Edwin Celaya Coding Level of Care Code D/C DAY MANAGEMENT >30 MINS Diagnoses Chest pain, rule out acute myocardial infarction R07.9 Peripheral neuropathy G62.9 GERD (gastroesophageal reflux disease) K21.9 Time Spent (min) 35
--- NOTE | 2022-06-19 21:30 | Electrocardiogram Report ---
Test Reason : Blood Pressure : / mmHG Vent. Rate : 065 BPM Atrial Rate : 065 BPM P-R Int : 190 ms QRS Dur : 108 ms QT Int : 438 ms P-R-T Axes : 058 -36 061 degrees QTc Int : 455 ms Normal sinus rhythm Left axis deviation Abnormal ECG When compared with ECG of 18-JUN-2022 07:59, No significant change was found Confirmed by Flakito Reynolds ([id number]) on 06/19/2022 9:30:21 PM Referred By: REFERRED SELF Confirmed By:Flakito Reynolds
== END 2022-06-19 16:00 | disposition home or self-care (01) ==
LOC: ED 07:52 → 2W 07:52 → SUATTDRO 10:22 → 2W 13:33
DX: I25.2 Old myocardial infarction; Z79.899 Other long term (current) drug therapy; I25.10 Atherosclerotic heart disease of native coronary artery without angina pectoris; Z79.82 Long term (current) use of aspirin; R07.9 Chest pain, unspecified; Z95.5 Presence of coronary angioplasty implant and graft; G62.9 Polyneuropathy, unspecified; K21.9 Gastro-esophageal reflux disease without esophagitis

== ENCOUNTER 2022-06-24 08:14 | Observation (INO) ==
--- NOTE | 2022-05-22 11:21 | PAT Medication Instructions ---
Medication Instructions Date of Service May 22, 2022 Home Medications aspirin 81 mg tablet,delayed release 81 mg PO QPM coenzyme Q10 100 mg capsule 100 mg PO QAM gabapentin 100 mg capsule 100 mg PO TID glucosamine-chondroitin 250 mg-200 mg tablet (Osteo Bi-Flex) 1 tab PO QAM rosuvastatin 10 mg tablet 10 mg PO QPM diclofenac sodium 1 % topical gel 2 g topical QID PRN fluticasone propionate 50 mcg/actuation nasal spray,suspension 2 spray intranasal QAM ibuprofen 200 mg capsule 200 mg PO BID multivitamin 1 tab PO QAM ASK your surgeon for instructions ibuprofen 200 mg capsule 200 mg PO BID STOP taking 2 weeks before surgery coenzyme Q10 100 mg capsule 100 mg PO QAM glucosamine-chondroitin 250 mg-200 mg tablet (Osteo Bi-Flex) 1 tab PO QAM STOP taking 24 hours before surgery diclofenac sodium 1 % topical gel 2 g topical QID PRN DO NOT take the morning of surgery multivitamin 1 tab PO QAM Take morning of surgery With a small sip of water, OTHERWISE NOTHING TO EAT OR DRINK AFTER MIDNIGHT: gabapentin 100 mg capsule 100 mg PO TID fluticasone propionate 50 mcg/actuation nasal spray,suspension 2 spray intranasal QAM Take evening before surgery aspirin 81 mg tablet,delayed release 81 mg PO QPM (unless directed otherwise by surgeon) gabapentin 100 mg capsule 100 mg PO TID rosuvastatin 10 mg tablet 10 mg PO QPM Other Notes If you have any questions please call us at [phone] or [phone] or [phone] or [phone]
--- NOTE | 2022-05-28 07:57 | History & Physical Report ---
Date of Service May 28, 2022 date of surgery: 06/24/22 Procedure: Left Total Knee Arthroplasty Surgeon: Jose Rocha Assessment & Plan (1) Arthritis of knee, left: Plan: Presents follow-up evaluation of his left knee pain. At last visit discussed possible total knee replacement, after discussing further care with his he would like to proceed with scheduling for his left total knee replacement. He is tried and failed previous cortisone injection as well as viscosupplementation without relief. X-rays reviewed which show advanced degenerative changes to left knee with [id number] changes osteophyte formation subchondral sclerosis. He would like to proceed with a patient-matched [employer] left total knee replacement at [facility]. We will plan on overnight stay secondary to part previous cardiac history. Will need cardiac clearance prior to his surgery as well. We will schedule for Iovera injection 2 weeks prior to his surgery, we will then discharge with home health physical therapy The risks and benefits have been discussed including, but not limited to, risk of infection, nerve injury, stiffness, loss of motion, failure to improve, etc. Reasonable outcomes and options of treatment were discussed. An explanation of appropriate alternatives to the procedure that may be advantageous were discussed and their risks and benefits, as well as the risks and benefits of not proceeding with treatment. I offered to answer any additional inquiries concerning the treatment involved. All the patient's questions were answered. The patient is agreeable, understanding of the treatment plan and alternatives, and wishes to proceed with the treatment plan. History of Present Illness Chief Complaint: left knee pain Primary Care Provider: Lori Horton MD Peter is a 72-year-old male who presents for preop evaluation prior to left total knee replacement. He states he is having pain in his knee for many years now which is gradually worsened, is now affecting his daily activities including walking standing and using stairs. He has pain with any activities he has tried oral anti-inflammatories and Tylenol without relief. His previous cortisone injection as well as viscosupplementation without relief. X-rays reviewed which show advanced generative changes of the left knee with joint subluxation. Discussed further treatment options he like to proceed with left total knee replacement Allergies Allergy/AdvReac Type Severity Reaction Status Date / Time No Known Allergies Allergy Verified 05/22/22 09:34 Home Medications Medication Instructions Recorded Confirmed Type aspirin 81 mg tablet,delayed 81 mg PO QPM 03/05/21 05/22/22 History release coenzyme Q10 100 mg capsule 100 mg PO QAM 03/05/21 05/22/22 History gabapentin 100 mg capsule 100 mg PO TID 03/05/21 05/22/22 History glucosamine-chondroitin 250 mg-200 1 tab PO QAM 03/05/21 05/22/22 History mg tablet (Osteo Bi-Flex) rosuvastatin 10 mg tablet 10 mg PO QPM 03/05/21 05/22/22 History diclofenac sodium 1 % topical gel 2 g topical QID PRN Pain 05/22/22 05/22/22 History fluticasone propionate 50 2 spray intranasal QAM 05/22/22 05/22/22 History mcg/actuation nasal spray,suspension ibuprofen 200 mg capsule 200 mg PO BID 05/22/22 05/22/22 History multivitamin 1 tab PO QAM 05/22/22 05/22/22 History Past Med/Surg History Medical History Abdominal aortic aneurysm HX Anxiety Coronary artery disease s/p CABG x 2, 1993 GERD (gastroesophageal reflux disease) Hyperlipidemia Kidney stones PASSED ON OWN Myocardial Infarction 1993 Surgical History History of cardiac cath LAST ONE -NO STENTS History of colonoscopy 2021 History of open heart surgery CABG 2 [facility]1993 S/P AAA (abdominal aortic aneurysm) repair REPAIR AT [facility]-2019 S/P appendectomy Family History Father Heart disease Mother Mental disorder Brother Cancer Uncle Family history of diabetes mellitus Social History Smoking Status: Never smoker Second Hand Exposure: No; Hx Alcohol Use: Yes Alcohol type: beer Hx Substance Use: No Preferred Language: Macedonian Communication Ability: Effective Watch Electrician Required: No Beliefs That Will Affect Care: None Current Living Situation: Spouse current occupational status: retired Feels Safe at Home: Yes Assistive Devices: Brace/Splint/Immobilizer, Cane, Glasses and Hearing Aid - Bilateral Review of Systems Review of Systems: All systems reviewed & are unremarkable except as noted in HPI & below Constitutional: no fever, no chills and no sweats Respiratory: no cough and no dyspnea Cardiovascular: no chest pain, no dyspnea and no orthopnea Gastrointestinal: no abdominal pain, no nausea and no vomiting Musculoskeletal: as per Subjective / HPI Physical Exam Physical Exam: HT: 5ft 11in WT: 104.3kg Constitutional: WD/WN, vitals as above no acute distress Respiratory: normal respiratory effort, lungs clear to auscultation no respiratory distress, no labored breathing and does not use accessory muscles Cardiovascular: RRR, no murmur, no edema Gastrointestinal (Abdomen): normal bowel sounds, soft, nontender, no hepatosplenomegaly Musculoskeletal: Knee: + knee abnormal to inspection (LEFT KNEE: ), + effusion (+1 effusion), + limited ROM of knee (ROM 0/3/110), + knee ROM with crepitation, + joint line tenderness (medial joint line) and + Pj's sign positive; no deformity, no skin erythema, no ecchymosis, no valgus laxity, no varus laxity, anterior drawer test negative, Alona's sign negative and pivot shift test negative Results & Data Results & Data ([facility]) Laboratory Results Left Knee X-ray: left knee series confirm advanced degenerative changes to the left knee, greatest medial compartments and patellofemoral joint, showing joint space narrowing, osteophyte formation and subchondral sclerosis. no acute bony pathology noted.
--- NOTE | 2022-06-09 15:53 | Anesthesiology Consultation ---
Date of Service June 09, 2022 Assessment & Plan (1) Encounter for pre-operative examination: - Per Coco at surgeon's office, patient is to have preop cardiology and PCP evaluations. Awaiting surgeon-ordered cardiology evaluation (televisit 06/10, Dr. Cheng) and PCP preop evaluation (Dr. Lori Horton- not scheduled yet). - COVID screening: Per assessment on 06/09: No known COVID-19 positive contacts (remote exposure 05/10, brother tested positive 05/11). No current COVID-19 related symptoms. Travel screen negative. Patient vaccinated. At surgeon discretion if preop Covid testing being done. - Outpatient joint assessment: Pt currently scheduled for inpatient pathway. If surgeon requests review for outpatient joint pathway, patient is not recommended candidate for outpatient joint program from anesthesia standpoint. - Anesthesia concern: Given propofol for shoulder dislocation repair- slow to wake. Able to go home same day without significant issue. Chart Review Chart Review: Patient seen in Pre Admission Testing Teaching & Discussion Pre-Anesthesia Teaching/Discussion Notes: Instructed NPO after midnight before surgery,except medications with 15 cc of water. Medication instructions provided according to the PAT guidelines. History Surgery Operation Date: 06/24/22 13:40 Proposed Procedures p Left Total Knee Arthroplasty - Jose Rocha DO Height/Weight Height: 5 ft 11 in Weight: 105.3 kg Allergies Allergy/AdvReac Type Severity Reaction Status Date / Time No Known Allergies Allergy Verified 05/22/22 09:34 Medications Home Medications Medication Instructions Recorded Confirmed Last Taken aspirin 81 mg tablet,delayed 81 mg PO QPM 03/05/21 05/22/22 Unknown release coenzyme Q10 100 mg capsule 100 mg PO QAM 03/05/21 05/22/22 Unknown gabapentin 100 mg capsule 100 mg PO TID 03/05/21 05/22/22 Unknown glucosamine-chondroitin 250 mg-200 1 tab PO QAM 03/05/21 05/22/22 Unknown mg tablet (Osteo Bi-Flex) rosuvastatin 10 mg tablet 10 mg PO QPM 03/05/21 05/22/22 Unknown diclofenac sodium 1 % topical gel 2 g topical QID PRN Pain 05/22/22 05/22/22 Unknown fluticasone propionate 50 2 spray intranasal QAM 05/22/22 05/22/22 Unknown mcg/actuation nasal spray,suspension ibuprofen 200 mg capsule 200 mg PO BID 05/22/22 05/22/22 Unknown multivitamin 1 tab PO QAM 05/22/22 05/22/22 Unknown Past Medical History Medical History Abdominal aortic aneurysm s/p repair (2018) Anxiety Coronary artery disease s/p CABG x2 (1993) GERD (gastroesophageal reflux disease) Hyperlipidemia Kidney stones PASSED ON OWN Myocardial Infarction 1993 Exercise / Class Metabolic Activity II 4-5 Yardwork/Stairs/Walk up hill (one FS (no CP, no SOB)) Past Family History Family History Father Heart disease Mother Mental disorder Brother Cancer Uncle Family history of diabetes mellitus Past Surgical History Surgical History History of cardiac cath Most recent > no stents History of colonoscopy 2021 History of open heart surgery CABG x2 (1993) S/P AAA (abdominal aortic aneurysm) repair 2019 ([facility], [place]) S/P appendectomy Past Anesthesia History No Family Hx of Anesthesia Complications and Other Given propofol for shoulder dislocation repair- slow to wake. Able to go home same day without significant issue. History of PONV No Hx of PONV and Hx of Motion Sickness (+ boats) Social History Smoking Status: Never smoker Do You Dip or Chew Tobacco: No Hx Alcohol Use: Yes Alcohol type: beer alcohol intake frequency: a few times a month Hx Substance Use: No Review of Systems Patient denies chest pain, shortness of breath, dyspnea on exertion, fever, chills, cough, wheezing, palpitations. Physical Exam Vital Signs VITALS BP 111/72 P 66 TEMP 98.3 SP02 95%RA RESP 16 PHYSICAL Full cervical extension range of motion. Full TMJ range of motion. TMD 3.5 finger breaths Mallampati Score 2 Dentition: intact, left bottom side bridge Lungs: clear throughout to auscultation Cardiac: regular rate and rhythm, no murmurs noted Spine: normal Carotid arteries: negative bruit Extremities: no edema Lab Results Anesthesia Preop Results Results Anesthesia Widget: WBC 6.72 K/ul (4.8-10.8) 06/09/22 Hgb 14.8 g/dl (14.0-18.0) 06/09/22 Hct 41.9 % (40.1-51.0) 06/09/22 Plt 230 K/uL (130-400) 06/09/22 Na 138 mmol/L (136-145) 06/09/22 K 4.0 mmol/L (3.5-5.1) 06/09/22 Cl 107 mmol/L (98-107) 06/09/22 CO2 24 mmol/L (21-32) 06/09/22 BUN 24 mg/dl (6-23) H 06/09/22 Creat 1.07 mg/dl (0.6-1.4) 06/09/22 Glucose Level 89 mg/dl (70-99(Fasting)) 06/09/22 POC Glucose 107 mg/dl (70-99) H 04/30/22 PT 10.9 Seconds (9.0-12.0) 06/09/22 PTT 27.0 Seconds (21.0-31.0) 06/09/22 INR 1.0 (0.9-1.1) 06/09/22 Urine Color Yellow 06/09/22 Urine Appearance Clear (Clear) 06/09/22 Urine pH 5.5 (4.5-7.5) 06/09/22 Urine Specific [place] 1.021 (1.000-1.030) 06/09/22 Urine Protein Negative (Negative) 06/09/22 Urine Glucose (UA) Negative (Negative) 06/09/22 Urine Ketones Negative (Negative) 06/09/22 Urine Blood Negative (Negative) 06/09/22 Urine Nitrite Negative (Negative) 06/09/22 Urine Bilirubin Negative (Negative) 06/09/22 Urine Urobilinogen Negative (Negative) 06/09/22 Urine Leukocyte Esterase Negative (Negative) 06/09/22 Blood Type A Positive 06/09/22 Antibody Screen NEGATIVE 06/09/22 Testing Electrocardiogram Date: 06/10/22 NSR at 67bpm. LAD. iRBBB. unconfirmed report. Chest X-Ray Date: 06/10/22 FINDINGS: PA and lateral chest radiographs are obtained. No prior studies are available for comparison at the time of dictation. The patient is status post midline sternotomy. The heart is enlarged noting atherosclerotic calcification of the thoracic aorta. The pulmonary vasculature is noncongested. There is mild bibasilar scarring/atelectasis. The lungs and pleural spaces are otherwise clear. There is no pneumothorax. The skeletal structures are osteopenic. The bony thorax appears intact. An aortic stent graft is partially visualized in the upper abdomen. IMPRESSION: Cardiomegaly with no active disease in the chest. Echocardiogram Date: 11/13/20 EF 55-60%. Mid to distal anterior septal, basal to mid anterior lateral, distal septum and inferoapex are hypokinetic. No LVH. Mild MR. Mild PI. Normal pulmonary artery pressures. Stress Test Date: 08/31/18 "Normal Lexiscan nuclear stress, no ischemia, normal wall motion, LVEF 47%" per cardiology records. Attempts to obtain official report unsuccessful. Other Testing Carotid duplex (01/10/21) No hemodynamically significant stenosis in the bilateral ICA. Antegrade flow in both vertebral arteries. Less than 50% stenosis of the right subclavian artery. Normal flow of the left subclavian artery. Complex, calcified plaque in the bilateral bulb and ICA. Aortoiliac duplex (01/09/22) Patent infrarenal aortobiiliac endovascular AAA repair without evidence of endoleak or stenosis. The residual aneurysm sac measures 4.0 cm x 4.2 cm. 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 The left distal common iliac artery is dilated, measuring 1.8 cm. No hemodynamically significant stenosis in the bilateral iliac or common femoral arteries. Common femoral arteries are dilated, measuring 1.5 cm on the right and 1.6 cm on the left. Compared to the previous study performed 01/10/2021, there is no change in residual infrarenal aortic aneurysm sac size, status post EVAR. COVID-19 Risk Screen Screening Information COVID-19 Screen Date: 06/09/22 Exposure 21 Days Family/Household +COVID Last 21 Days: No Exposure 10 Days Any COVID Exposure Last 10 Days: No Symptoms Last 10 Days Experienced COVID Sx Last 10 Days: No + COVID 0-90 Days COVID + in Last 0-90 Days: No
[~2022-06-24 08:14] MED LIST: ACETAMINOPHEN 500 MG TAB PO SCH; BUPIVACAINE 0.5 % 5 MG/1 ML PF 10ML VIAL ONE; CeleBREX 200 MG CAP PO SCH; EPINEPHrine INJ 1 MG/ML AMP ONE; FAMOTIDINE 20 MG TAB PO SCH; GABAPENTIN 300 MG CAP PO SCH; LR 500ML BOLUS, THEN 15ML/HR IV SCH; METOCLOPRAMIDE HCL 10 MG TABLET PO SCH; ROPIVACAINE 0.5% 5 MG/ML 30 ML VIAL ONE; ROPIVACAINE 0.5% HCL/PF 150 MG, BUPIVACAINE 0.75% MPF 20 ML, EPINEPHrine 30MG/30ML (OR ... INSTIL SCH; ceFAZolin 2000MG 2,000 MG/15 ML SYR IV SCH; dexAMETHasone 4 MG TAB PO SCH
--- NOTE | 2022-06-24 08:52 | History & Physical Bridge Note ---
Date of Service June 24, 2022 History & Physical Bridge Note I have examined the patient, reviewed the History & Physical and in the interval since the performance of the History & Physical I have noted the following changes of clinical significance: no changes noted
[2022-06-24] MEDS ORDERED: TRANEXAMIC ACID 100 MG/ML 10 ML VIAL IV ONE (09:04)
[2022-06-24] MEDS ORDERED: TRANEXAMIC ACID / 0.7% NACL 1000MG/100ML BAG IV ONE (09:08)
[2022-06-24] MEDS ORDERED: LIDOCAINE 2% 2 ML VIAL/AMP(20MG/ML) INFIL ONE (09:20)
[2022-06-24] MEDS ORDERED: PROPOFOL IV EMULSION 10 MG/ML 20 ML VIAL IV ONE ×3 (09:20→09:21)
[2022-06-24] MEDS ORDERED: MIDAZOLAM HCL 1 MG/ML 2ML VIAL ONE (09:20)
[2022-06-24] MEDS ORDERED: TRANEXAMIC ACID 1,000 MG **IV Intra-op IV SCH (09:30)
[2022-06-24] MEDS ORDERED: TRANEXAMIC ACID 1,000 MG **IV Pre-op IV SCH (09:30)
[2022-06-24] MEDS ORDERED: ORTHO JOINT ANESTHETIC ONE (10:04)
[2022-06-24] MEDS ORDERED: fentaNYL citrate 100 MCG/2 ML VIAL IV PRN (10:16)
[2022-06-24] MEDS ORDERED: ONDANSETRON INJ 2 MG/ML 2 ML VIAL IV PRN ×2 (10:16→14:21)
[2022-06-24] MEDS ORDERED: PROMETHAZINE HCL 12.5 MG in SODIUM CHLORIDE 0.9% 50 ML IV PRN (10:16)
[2022-06-24] MEDS ORDERED: ATROPINE SULFATE 0.1 MG/ML 10ML SYR IV PRN (10:16)
[2022-06-24] MEDS ORDERED: HYDROmorphone INJ 1 MG/ML SYRINGE IV PRN ×2 (10:16→14:21)
[2022-06-24] MEDS ORDERED: FLUMAZENIL 0.1 MG/1 ML 10 ML VIAL IV PRN (10:16)
[2022-06-24] MEDS ORDERED: ePHEDrine sulfate 50 MG/ML AMP IV PRN (10:16)
[2022-06-24] MEDS ORDERED: NALOXONE HCL 0.4 MG/1 ML VIAL/CARP IV PRN ×2 (10:16→14:21)
--- NOTE | 2022-06-24 11:21 | Operative Report ---
Post Operative Report Pre & Post Diagnosis Operation Date: 06/24/22 10:30 Pre-Op Diagnosis: Arthritis of Left Knee Post-Op Diagnosis: Arthritis of Left Knee I identified the patient and participated in the time-out.: Yes Procedure Operation Date: 06/24/22 10:30 Actual Procedures p Left Total Knee Arthroplasty(Left) utilizing [employer] to an en bloc total knee arthroplasty size femur 7 left tibia 7 left poly-9 mm patella 35 oval- Jose Rocha DO Surgeon Jose Rocha DO Application Security Architect KRIS Gagnon Estimated Blood Loss 5 Findings Consistent with Post-Op Diagnosis Patient presents with severe end-stage tricompartmental degenerative joint disease left knee varus alignment eburnated [id number] marginal osteophyte subchondral sclerosis subchondral cystic changes with a moderate to large effusion Specimens Bone and cartilage Drains Medium bore Hemovac Anesthesia Type MAC Spinal Regional Complications none Disposition Accompanied Patient To Recovery: No Disposition: Recovery Room Indications Patient presents after a failed attempted conservative management occluding physical therapy anti-inflammatories relative rest activity modification corticosteroid injection viscosupplementation above intraoperative findings were noted Description of Procedure After proper prepping and draping of the left lower extremity anterior midline incision was made over the region of the extensor extensor mechanism after meticulous hemostasis was obtained and maintained in subcutaneous tissues a medial parapatellar incision was made The patella was subluxed lateralward the medial lateral gutter were cleaned from any hypertrophic synovitis and scar tissue of the distal femoral block was placed and the distal femoral osteotomy cut was made subsequently the chamfers anterior and posterior osteotomy cuts were made utilizing the 4-in-1 block the tibia was subsequently subluxed anteriorward medial and ateral meniscal remnants were excised in their entirety remnants of the anterior and posterior cruciate ligaments were excised in their entirety excellent exposure of the proximal tibia was obtained the tibial osteotomy guide was placed on the proximal tibial osteotomy cut was made once again the knee was irrigated with copious amounts of sterile saline solution the patella was subsequently everted lateralward thickened scar tissue around the patella was removed the patella was subsequently cut utilizing a freehand technique and was drilled prepared for final preparation and placement of patella socially flexion-extension gaps were checked and the equal and symmetric trials were placed to the appropriate femoral and tibial trials with poly-spacer being placed for equal flexion and extension gaps and full range of motion including extension to 0 and flexion to 140 the trial components after having been taken to recovery range of motion was subsequently removed meticulous hemostasis was obtained and maintained subsequently a knee block injection of joint cocktail including ropivacaine 0.5% 150 mg. Bupivacaine 0.5% epinephrine 1-200,030 mL's toradol 30 mg dexamethasone 4 mg ketamine 10 mg clonidine 100 micrograms normal saline solution 30 mg was infiltrated into the soft tissues of the posterior knee medial lateral gutters and periosteal synovium special attention was paid to protect neurovascular structures at all times subsequently trial components having been removed the knee was irrigated with sterile saline solution. debris was removed the proximal tibia was subsequently prepared and was made ready for the placement of the tibial component tibial component was also cemented and tamped into position the femoral component was subsequently placed and cemented in the position the patellar component was subsequently cemented in position because hemostasis once again obtained and maintained wound having been thoroughly irrigated with debridement and debridement lavage was performed as well as a medial parapatellar incision closed with #1 Vicryl in interrupted fashion subcutaneous was closed with #2 Vicryl skin was closed with skin clips. PA-C was necessary for prepping and drapping as well as wound closure of deep fascia Sub cutaneous tissue and skin and was necessary for the case. A sterile compressive dressing was placed patient was taken to recovery in stable condition of report dictated by Aj I attest to the content of the Intraoperative Record and any orders documented therein. Any exceptions are noted below.Due to the complex nature of the procedure, the entire surgery was performed with the operational assistance of KRIS Gagnon. The assistant boiler operator, under direct supervision, was involved in the actual performance of all aspects of the surgical procedure including hemostasis, tissue retraction and incision, instrument management, patient positioning, and wound closure. I attest to the content of the Intraoperative Record and any orders documented therein. Any exceptions are noted below.
--- NOTE | 2022-06-24 12:40 | XRay Report ---
TWO VIEWS LEFT KNEE CLINICAL HISTORY: Postoperative examination. FINDINGS: AP and crosstable lateral portable views of the left knee are obtained. A left knee arthrop lasty is in near anatomic alignment. There has been undersurface remodeling of the patella. No acute fracture is seen. There are expected postoperative changes around the knee including a surgical drain , soft tissue edema, and subcutaneous gas. IMPRESSION: Expected postoperative changes status post left knee arthroplasty. No acute fracture is s een. ACT 112: Negative or not required by law. Electronically signed by: Donnell Bernal M.D. 06/24/2022 12:39 PM
--- NOTE | 2022-06-24 13:49 | Anesthesiology Progress Note ---
Date of Service June 24, 2022 Anesthesia Post Procedure Vital Signs Vital Signs: Temp Pulse Resp BP Pulse Ox O2 Del Method O2 Flow Rate 06/24/22 13:30 67 20 107/65 95 Room Air 06/24/22 13:20 64 20 107/67 95 Room Air 06/24/22 13:10 71 16 113/72 94 Room Air 06/24/22 13:00 67 15 101/65 93 Room Air 06/24/22 12:50 36.3 C L 67 18 106/67 95 Room Air 06/24/22 12:40 64 12 119/68 94 Room Air 06/24/22 12:30 67 12 107/67 93 Room Air 06/24/22 12:20 67 12 100/62 93 Room Air 06/24/22 12:10 64 12 90/58 L 97 Oxymask 3 06/24/22 12:00 78 16 110/69 98 Oxymask 6 06/24/22 11:58 36.3 C L 81 14 102/61 97 Oxymask 6 06/24/22 08:36 36.6 C 64 20 124/76 97 Room Air Pain Intensity Left Knee: Pain Intensity: 0 Transfer of Care Handoff Completed per policy Notes Mental Status: alert / awake / arousable Patient Amnestic to Procedure: Yes Nausea / Vomiting: adequately controlled Pain: adequately controlled Airway Patency, RR, SpO2: stable & adequate BP & HR: stable & adequate Hydration State: stable & adequate Neuraxial Anesthesia: was administered and sensory block is resolving Anesthetic Complications: no major complications apparent
[2022-06-24] MEDS ORDERED: oxyCODONE HCL IR 5 MG TAB (IMMEDIATE RELEASE) PO PRN (14:21)
[2022-06-24] MEDS ORDERED: bisacodyL 10 MG SUPP PR PRN (14:21)
[2022-06-24] MEDS ORDERED: METOCLOPRAMIDE HCL INJ 5 MG/ML 2 ML VIAL IV PRN (14:21)
[2022-06-24] MEDS ORDERED: MAGNESIUM HYDROXIDE SUSP 30 ML UDC PO PRN (14:21)
[2022-06-24] MEDS ORDERED: diphenhydrAMINE Capsule 25 MG CAP PO PRN (14:21)
[2022-06-24] MEDS: SODIUM CHLORIDE 0.9% 1000ML 1,000 ML IV SCH (15:06)
[2022-06-24] MEDS: ACETAMINOPHEN 500 MG TAB PO SCH ×2 (15:06→21:28)
[2022-06-24] MEDS: KETOROLAC TROMETHAMINE 15 MG/ML VIAL IV SCH ×2 (15:06→20:05)
[2022-06-24] MEDS: GABAPENTIN 100 MG CAP PO SCH ×2 (15:16→20:04)
[2022-06-24] MEDS: ceFAZolin 2000MG 2,000 MG/15 ML SYR IV SCH (18:28)
[2022-06-24] MEDS: ASPIRIN 81 MG ECTAB PO SCH (20:04)
[2022-06-24] MEDS: DOCUSATE SODIUM 100 MG CAP PO SCH (20:05)
[2022-06-24] MEDS ORDERED: ROSUVASTATIN CALCIUM 10 MG TAB PO SCH (21:00)
[2022-06-24] MEDS ORDERED: SENNA 8.6 MG TAB PO SCH (21:00)
[2022-06-25] MEDS: SODIUM CHLORIDE 0.9% 1000ML 1,000 ML IV SCH (01:46)
[2022-06-25] MEDS: ceFAZolin 2000MG 2,000 MG/15 ML SYR IV SCH (01:47)
[2022-06-25] MEDS: KETOROLAC TROMETHAMINE 15 MG/ML VIAL IV SCH ×2 (01:56→08:12)
[2022-06-25] MEDS: ACETAMINOPHEN 500 MG TAB PO SCH (05:34)
[2022-06-25] MEDS ORDERED: TRANEXAMIC ACID 100 MG/ML 10 ML VIAL IV SCH (06:00)
[2022-06-25] MEDS ORDERED: TRANEXAMIC ACID 1,000 MG **IV Pre-op IV SCH (06:00)
--- NOTE | 2022-06-25 07:12 | Orthopedic Progress Note ---
Date of Service June 25, 2022 Assessment & Plan (1) History of total left knee replacement: Plan: POD #1 s/p left TKA pt/ot dvt proph with ANJANA/SCD/ASA plan for d/c home with HHPT Admission and Anticipated Discharge Date Admission Date: June 24, 2022 Subjective POD #1 s/p Left TKA Review of Systems Constitutional: no fever, no chills and no sweats Respiratory: no cough and no dyspnea Cardiovascular: no chest pain and no dyspnea Gastrointestinal: no abdominal pain, no nausea and no vomiting Physical Exam Physical Exam: Vital Signs Temp 36.6 C 06/25/22 03:42 Pulse 52 L 06/25/22 03:42 Resp 18 06/25/22 03:42 BP 123/69 06/25/22 03:42 Pulse Ox 97 06/25/22 03:42 O2 Del Method 06/25/22 03:42 O2 Flow Rate 3 06/24/22 12:10 Intake & Output 06/24/22 06/25/22 06/25/22 18:59 06:59 18:59 Intake Total 1760 / 3360 1600 / 3360 Output Total 105 / 865 760 / 865 Balance 1655 / 2495 840 / 2495 Weight 102.8 kg Intake: IV 200 / 1200 1000 / 1200 Lactated Ringe r's 1,000 ml @ 15 0 / 0 mls/hr IV .Q24 H MARY Rx#: [id number] Sodium Chlorid e 0.9% 1000ML 1, 1000 / 1000 000 ml @ 100 m ls/hr IV .Q10H MARY Rx#:[id number] Tranexamic Aci d / 0.7% NaCl 1, 200 / 200 000 mg In 100 ml @ 600 mls/hr IV TODAY@0930 MARY Rx#:[id number] IV Perioperative 1200 / 1200 Oral 360 / 960 600 / 960 Output: Urine 500 / 500 Estimated Blood Loss 5 / 5 Drain Output 100 / 360 260 / 360 Left Knee Hemo vac 100 / 360 260 / 360 Other: # Unmeasured Voi ds 2 1 Weight Measureme nt Method Standing Scale Musculoskeletal: Left Leg: NVDI, calf SNT, negative birdie sign. DP palpable, able to wiggle toes/ankle movement without difficulty. dressing clean dry and intact. Results & Data ([facility]) Vital Signs (Past 12 Hours) Vital Signs Temp Pulse Resp BP Pulse Ox O2 Del Method 06/25/22 03:42 36.6 C 52 L 18 123/69 97 Room Air 06/25/22 00:00 36.5 C 52 L 18 111/56 L 95 Room Air 06/24/22 20:12 36.5 C 61 16 107/64 Laboratory Results Laboratory Results SARS-CoV-2, RNA, NAAT NEGATIVE (NEGATIVE) 06/24/22 08:28 Impressions Knee X-Ray 06/24/22 12:16 TWO VIEWS LEFT KNEE CLINICAL HISTORY: Postoperative examination. FINDINGS: AP and crosstable lateral portable views of the left knee are obtained. A left knee arthroplasty is in near anatomic alignment. There has been undersurface remodeling of the patella. No acute fracture is seen. There are expected postoperative changes around the knee including a surgical drain, soft tissue edema, and subcutaneous gas. IMPRESSION: Expected postoperative changes status post left knee arthroplasty. No acute fracture is seen. ACT 112: Negative or not required by law. Electronically signed by: Donnell Bernal M.D. 06/24/2022 12:39 PM
--- NOTE | 2022-06-25 07:30 | Discharge Summary ---
Date of Service date of discharge: June 25, 2022 date of admission: 06/24/22 Admission HPI Per Admitting Provider Peter is a 72-year-old male who presents for preop evaluation prior to left total knee replacement. He states he is having pain in his knee for many years now which is gradually worsened, is now affecting his daily activities including walking standing and using stairs. He has pain with any activities he has tried oral anti-inflammatories and Tylenol without relief. His previous cortisone injection as well as viscosupplementation without relief. X-rays reviewed which show advanced generative changes of the left knee with joint subluxation. Discussed further treatment options he like to proceed with left total knee replacement Principal Diagnosis left knee arthritis Discharge Exam Vital Signs Temp 36.6 C 06/25/22 03:42 Pulse 52 L 06/25/22 03:42 Resp 18 06/25/22 03:42 BP 123/69 06/25/22 03:42 Pulse Ox 97 06/25/22 03:42 O2 Del Method 06/25/22 03:42 O2 Flow Rate 3 06/24/22 12:10 Intake & Output 06/24/22 06/25/22 06/25/22 18:59 06:59 18:59 Intake Total 1760 / 3360 1600 / 3360 Output Total 105 / 865 760 / 865 Balance 1655 / 2495 840 / 2495 Weight 102.8 kg Intake: IV 200 / 1200 1000 / 1200 Lactated Ringer's 1,000 ml @ 15 0 / 0 mls/hr IV .Q24H MARY Rx#: [id number] Sodium Chloride 0.9% 1000ML 1, 1000 / 1000 000 ml @ 100 mls/hr IV .Q10H MARY Rx#:[id number] Tranexamic Acid / 0.7% NaCl 1, 200 / 200 000 mg In 100 ml @ 600 mls/hr IV TODAY@0930 MARY Rx#:[id number] IV Perioperative 1200 / 1200 Oral 360 / 960 600 / 960 Output: Urine 500 / 500 Estimated Blood Loss 5 / 5 Drain Output 100 / 360 260 / 360 Left Knee Hemovac 100 / 360 260 / 360 Other: # Unmeasured Voids 2 1 Weight Measurement Method Standing Scale Musculoskeletal left knee: NVDI, calf SNT, negative birdie sign. DP palpable, able to wiggle toes/ankle movement without difficulty. DRAKE dressing clean dry and intact. expected post-operative bruising noted. Discharge Data Allergies Allergy/AdvReac Type Severity Reaction Status Date / Time No Known Allergies Allergy Verified 06/24/22 08:42 Procedures Performed Operation Date: 06/24/22 10:30 Actual Procedures p Left Total Knee Arthroplasty(Left) - Jose Mota DO Ordered Studies 06/24/22 05:00 US - OR guided needle placemen Routine Hospital Course (1) History of total left knee replacement: POD #1 s/p left TKA pt/ot dvt proph with ANJANA/SCD/ASA plan for d/c home with HHPT Total Time Total Time Spent Total Time Spent (In Minutes): 20 Discharge Plan Discharge Items Patient Disposition: Home - Home Health Services Reason For Visit: POST OP TKA Discharge Diagnosis: LEFT TOTAL KNEE REPLACEMENT Activity: Per Instructions section Weightbearing Comment: WBAT WITH WALKER Non-emergency contact: Surgeon Call non-emergency contact if: you have any medication questions, your temperature is above 101, your wound has increased redness, your wound has increased drainage and your wound pain has increased Follow-up/Referrals: Lori Horton MD [Primary Care Provider] - Diet: Regular Addtl Attending Provider Instructions: ACTIVITY RECOMMENDATIONS: SELF CARE INSTRUCTIONS AFTER TOTAL KNEE REPLACEMENT A. You may need to continue a physical therapy program after discharge from the hospital. There are several options available to you. Your doctor will assist you in selecting the best one for you. 1. An out-patient facility 2 to 3 times a week for therapy or home therapy. 2. Continue working on all exercises taught to you in the hospital. Your goals should be to increase bending of your knee to 90 degrees and beyond and to fully straighten your knee. B. You may progress at your own pace from walking with a walker or crutches to a cane; then to no assistive devices. C. Make walking a part of your daily routine. Be up as much as comfortable with rest periods throughout the day. Rest with leg elevation is very important. Use the ice wrap frequently for the first 3-4 weeks. D. There are no restrictions on activities. You may ride in a car, shop, participate in armament aircraft mechanic and all social activities. E. Wear the long elastic stockings (ANJANA hose) 20 hours a day for 2 weeks after surgery. They can be removed several times a day for laundering and for a bath. F. You may shower, no tub baths until cleared by your doctor. SPECIAL CARE INSTRUCTIONS: VERY IMPORTANT TO READ AND REVIEW A. There are a few signs you need to watch for after you are home. Call [facility] if you notice any of the followin. Increased severe knee pain. Some pain is expected especially when you exercise. 2. Increased swelling in your leg or knee; pain or swelling of the calf muscle in either lower leg. 3. Any fluid drainage from the incision. 4. Shortness of breath or chest pain. B. Please call [facility] at if you have any concerns or questions about your operation or recovery. The doctor or his nurse will return your call promptly. C. You must take antibiotics before dental work, bladder, bowel or other surgery. Your doctor will provide you with a permanent care to carry describing this precaution. IMPORTANT: * REMEMBER TO TAKE ASPIRIN, 81 MG, TWICE DAILY FOR 4 WEEKS UNLESS OTHERWISE DIRECTED. THIS IS YOUR BLOOD THINNER. * HIGH RISK PATIENTS MAY BE PRESCRIBED A STRONGER BLOOD THINNER. THIS WILL BE PROVIDED AT DISCHARGE. * CALL IF INCREASED PAIN, REDNESS, DRAINAGE OR FEVER GREATER THAT 101. * WEAR ANJANA HOSE 20 HOURS PER DAY FOR 2 WEEKS. * DRAKE Dressing- This is a large suction dressing covering your incision. This will help pull any excess drainage from the wound and allow your incision to heal properly. You may shower with this if you can keep the unit outside of the shower. If any bleeding or leakage is noted please call your doctor's office. This will remain on your incision for 7 days and then should be removed. This can be done yourself or by the home nursing staff if applicable. The entire unit is disposable once removed. Once removed, keep incision clean and dry. If redness or drainage is noted, please call your surgeon. ONCE DRAKE IS REMOVED, FOLLOW THESE INSTRUCTIONS: DERMABOND Prineo- This is a mesh tape dressing that is covered with glue. It should remain in place until the incision is properly healed, usually 10-14 day s. This dressing is designed to naturally slough off. You may trim the excess mesh tape as it peels off. Incision may be briefly wet in a shower. Dry immediately by blotting with a clean, dry towel. Do not bath or swim until instructed by your doctor. Do not scratch, rub, or pick at the dressing. Do not apply any topical ointments or lotions until dressing is completely removed and/or instructed by your doctor. There may be a small piece of suture material at one end of your incision. Do not pull or trim this. If it is bothersome or catching on clothing, you may cover it with a band-aid. IF INCISION IS LEAKING THROUGH DRESSING, CALL THE OFFICE . FOLLOW UP VISIT: If appointment is not already scheduled: Please call [facility] to make a follow-up appointment for 2 weeks after your surgery at . Pending Studies at Discharge: No Stand-Alone Forms: My [facility] Medications and DC Order Prescriptions: New acetaminophen [Tylenol Extra Strength] 500 mg Tablet 1,000 mg PO Q8 21 Days Qty: 126 0RF aspirin 81 mg Tablet,Delayed Release (Dr/Ec) 81 mg PO BID 30 Days Qty: 60 0RF celecoxib [Celebrex] 200 mg Capsule 200 mg PO BID 30 Days Qty: 60 0RF oxycodone 5 mg Tablet 5 - 10 mg PO Q6H PRN (Reason: pain) Qty: 30 0RF Rx Instructions: ongoing therapy, supervising dr hemal mota. max 6 tabs in 24 hours docusate sodium 100 mg Capsule 100 mg PO BID 10 Days Qty: 20 0RF cefadroxil 500 mg capsule 500 mg PO BID 14 Days Qty: 28 0RF Continued rosuvastatin 10 mg tablet 10 mg PO QPM gabapentin 100 mg capsule 100 mg PO TID multivitamin Tablet 1 tab PO QAM fluticasone propionate 50 mcg/actuation [place],Suspension 2 spray INTRANASAL QAM Rx Instructions: administer into each nostril Discontinued coenzyme Q10 100 mg capsule 100 mg PO QAM glucosamine-chondroitin [Osteo Bi-Flex] 250-200 mg tablet 1 tab PO QAM aspirin 81 mg tablet,delayed release (DR/EC) 81 mg PO QPM ibuprofen 200 mg Capsule 200 mg PO BID diclofenac sodium 1 % Gel 2 g TOPICAL QID PRN (Reason: Pain) Rx Instructions: apply to single elbow, wrist or hand; for hand includes palm/fingers/back of hand Discharge Orders: Discharge Order (Routine); Ordered 06/25/22 Ordered By: Nahid Maney Admission Data Admit Date/Time: 06/24/22 12:16 Attending Provider: Jose Mota Admit Provider: Jose Mota Primary Care Provider: Lori Horton Other Providers: [facility]ly [facility]
[2022-06-25 07:32] LABS: Hematocrit (blood only) 38.9 % (40.1-51.0); Hemoglobin 13.5 g/dl (14.0-18.0); Mean Corpuscular Hgb Conc 34.7 g/dL (32.0-36.0); Mean Corpuscular Volume 89.2 fL (80.0-100.0); Platelet Count 234 K/uL (130-400); RDW Coefficient of Variation 12.9 % (11.5-14.5); RDW Standard Deviation 42.5 fL (36.4-46.3); Red Blood Count 4.36 M/uL (4.63-6.08); White Blood Count 16.21 K/ul (4.8-10.8)
[2022-06-25 07:54] LABS: BUN Creatinine Ratio 20.6 (10-20); Calcium 8.4 mg/dl (8.5-10.1); Creatinine Clr Calc Pharmacy 75.1 ml/min; Est GFR (African American) 79.4 ml/min; Est GFR (Non-African American) 68.5 ml/min; Potassium 4.2 mmol/L (3.5-5.1)
[2022-06-25] MEDS: DOCUSATE SODIUM 100 MG CAP PO SCH (08:16)
[2022-06-25] MEDS: ASPIRIN 81 MG ECTAB PO SCH (08:16)
[2022-06-25] MEDS: GABAPENTIN 100 MG CAP PO SCH (08:16)
[2022-06-25] MEDS ORDERED: CeleBREX 200 MG CAP PO SCH (09:00)
[2022-06-25] MEDS ORDERED: FLUTICASONE PROPIONATE NA SPR 16 GM BTL SCH (09:00)
[2022-06-25] MEDS ORDERED: MULTIVITAMIN TAB PO SCH (09:00)
== END 2022-06-25 13:23 | disposition home health service (06) ==
LOC: 3W 08:14 → ASU 08:14

== ENCOUNTER 2023-05-30 13:18 | Observation (INO) ==
[2023-05-30 13:57] LABS: Basophils # (auto) 0.06 K/uL (0.00-0.20); Basophils % (auto) 0.8 %; Eosinophils # (auto) 0.52 K/uL (0.00-0.50); Eosinophils % (auto) 6.6 %; Hematocrit (blood only) 45.5 % (42.0-52.0); Immature Granulocytes # (auto) 0.03 K/uL (0.01-0.20); Immature Granulocytes % (auto) 0.4 %; Lymphocytes % (auto) 22.8 %; Mean Corpuscular Hgb Conc 35.2 g/dL (32.0-36.0); Mean Corpuscular Volume 88.2 fL (80.0-100.0); Mean Platelet Volume 10.3 fL (9.4-12.4); Monocytes # (auto) 0.69 K/uL (0.11-0.59); Monocytes % (auto) 8.8 %; Neutrophils # (auto) 4.78 K/uL (1.40-6.50); Neutrophils % (auto) 60.6 %; Platelet Count 253 K/uL (130-400); RDW Coefficient of Variation 13.3 % (11.5-14.5); RDW Standard Deviation 43.1 fL (36.4-46.3); Red Blood Count 5.16 M/uL (4.70-6.10); White Blood Count 7.88 K/ul (4.8-10.8)
--- NOTE | 2023-05-30 14:06 | XRay Report ---
XR chest 1V not portable HISTORY: Chest pain, nonspecific COMPARISON: Chest 06/18/2022. FINDINGS: No pneumothorax. No pleural effusions. No new focal lung consolidations to suggest pneumoni a. No evidence for pulmonary edema. There are poststernotomy changes. The heart is normal in size. A few bibasilar linear densities favor subsegmental atelectasis or scarring. IMPRESSION: No acute process. ACT 112: Negative or not required by law. Electronically signed by: Olvin Bangura M.D. 05/30/2023 2:05 PM
--- NOTE | 2023-05-30 14:19 | Emergency Department Note ---
Impression & Plan Chest pain ED Provider Note ED Provider Note NAME: RED BONNER AGE:73 SEX: Male : 1950 ARRIVES VIA: Private vehicle INFORMANT: Patient ED PROVIDER(s): Steffi Campos DO CHIEF COMPLAINT: Chest pain HPI: This is a 73-year-old male presents emergency department due to concern for chest pain. Patient states he began noticing a heaviness in the left side of his chest Wednesday evening. He states it seemed to improve, but he again noticed it on Wednesday. Patient states it seems to be with any exertion. He states he also notices with taking a deep breath he gets a sharp pain in his lower chest/upper abdomen which he thought was more likely be related to his history of GERD. He denies any overt heartburn. Patient denies any recent shortness of breath, nausea/vomiting, diaphoresis, dizziness, or leg swelling. No recent change in urine or stools. No recent change in medications. Patient states he did have a heart attack back in the late and had CABG x2 at that time. He follows with Dr. Cheng of cardiology. PAST MEDICAL HISTORY:See Below PAST SURGICAL HISTORY:See Below FAMILY HISTORY:See Below SOCIAL HISTORY:See Below HOME MEDICATIONS:See Below ALLERGIES:See Below VITALS:See Below PHYSICAL EXAMINATION: GENERAL: alert, well appearing, well nourished, no distress, non-toxic EYE EXAM: normal conjunctiva, PERRL and EOM's grossly intact OROPHARYNX: no exudate, no erythema, lips, buccal mucosa, and tongue normal and mucous membranes are moist NECK: supple, no nuchal rigidity, no adenopathy, non-tender LUNGS: Clear to auscultation. Normal chest wall mechanics, no w/r/r HEART: no murmurs, S1 normal and S2 normal ABDOMEN: abdomen soft, non-tender, normo-active bowel sounds, no masses, no rebound or guarding. BACK: Back is symmetrical on inspection and there is no deformity, no midline tenderness, no CVA tenderness. SKIN: no rashes, petechiae, orbruising UPPER EXTREMITIES: upper extremities are grossly normal. FROM, nml pulses b/l. LOWER EXTREMITIES: No pitting edema. FROM, nml pulses b/l. NEURO EXAM: Normal sensorium, cranial nerves II-XII grossly intact, normal speech, no facial droop,nogross weakness of arms, no gross weakness of legs. Gross sensation intact. No ataxia. Vital Signs: reviewed and remarkable Differential Diagnosis: acute coronary syndrome, pericarditis, pulmonary embolus, aortic dissection, pneumonia, pneumothorax, GERD, GI bleed, esophageal spasm, musculoskeletal pain, as well as others were considered MEDICAL DECISION MAKING: This is a 73-year-old male with a history of coronary artery disease status post CABG presents emerged part due to concern for exertional chest pain. Patient afebrile and vital signs stable. Labs drawn and sent, IV established, EKG and chest x-ray performed bedside interpreted by me and patient monitored on telemetry. Patient found to have an elevated D-dimer and was sent for CT imaging additionally, this was reassuring. Due to concern for exertional description and known CAD, case discussed with [facility]call cardi[facility] and [facility]. All results discussed with the patient and at bedside, they verbalized understanding and were in agreement with the plan. Patient had no symptoms of pain while resting in bed in the emergency room. He was hemodynamically stable throughout. Consultation(s): 1814: Discussed with Dr. Bolanos, [facility] cardiology. 1821: Discussed with Dr. Wharton, [facility] hospitalist team. ER Treatment Provided: See below Diagnostics Interpreted By Me: -ECG: Normal sinus at 65, leftward axis, normal intervals, no acute ST/T wave changes -Cardiac Monitoring: An order was placed for continuous cardiac monitoring. The monitor shows a rate of 70 with normal sinus rhythm. -Laboratory studies: As stated above and show below. -Imaging studies: X-ray Chest: A single view study of the chest was reviewed and was negative for cardiomegaly, focal infiltrate, effusion, pulmonary edema, or wide mediastinum. Triage Nursing Note Reviewed Prior/Outside Records Reviewed -prior cardiology visit reviewed Past Med/Surg History Medical History (Updated 05/30/23 @ 19:01 by Jacquelyn Whatron DO) Abdominal aortic aneurysm s/p repair (2018) Anxiety Coronary artery disease History of DC. s/p CABG x2 (1993) GERD (gastroesophageal reflux disease) Hyperlipidemia Kidney stones PASSED ON OWN Surgical History History of cardiac cath Most recent > no stents History of colonoscopy 2021 History of open heart surgery CABG x2 (1993) S/P AAA (abdominal aortic aneurysm) repair 2019 ([facility]/[place], [place]) S/P appendectomy Family History Father Heart disease Mother Mental disorder Brother Cancer Uncle Family history of diabetes mellitus Social History Smoking Status: Never smoker Second Hand Exposure: No; Do You Dip or Chew Tobacco: No; Hx Alcohol Use: Yes Alcohol type: beer and wine Hx Substance Use: No Preferred Language: Korean Communication Ability: Effective Health/Safety Job Titles Required: No Beliefs That Will Affect Care: None marital status: Current Living Situation: Spouse current occupational status: retired Feels Safe at Home: Yes Safety Concerns: Feels Safe At This Time Assistive Devices: Cane Allergies Allergies Allergy/AdvReac Type Severity Reaction Status Date / Time No Known Allergies Allergy Verified 05/30/23 17:04 Home Meds Home Medications Medication Instructions Recorded Confirmed rosuvastatin 10 mg tablet 10 mg PO QPM 03/05/21 05/30/23 fluticasone propionate 50 2 spray intranasal QAM 05/22/22 05/30/23 mcg/actuation nasal spray,suspension multivitamin 1 tab PO QAM 05/22/22 05/30/23 aspirin 81 mg tablet,delayed 81 mg PO DAILY 07/31/22 05/30/23 release (Adult Low Dose Aspirin) coenzyme Q10 200 mg capsule 200 mg PO DAILY 07/31/22 05/30/23 acetaminophen 500 mg tablet 1,000 mg PO DIRECTED PRN Pain 02/02/23 05/30/23 (Tylenol Extra Strength) vit 2 tab PO DAILY 02/02/23 05/30/23 [id number] 500 mg-50 mg-25 mg-40 mg tablet (Bioflex) Cataract Eye Drops 1 drp ophthalmic (eye) DIRECTED 05/30/23 05/30/23 gabapentin 100 mg capsule 200 mg PO BID 05/30/23 05/30/23 ibuprofen 200 mg tablet 200 mg PO DIRECTED PRN Pain 05/30/23 05/30/23 Results & Data (ED) Vital Signs Vital Signs - 24 hr 05/30/23 13:18 05/30/23 13:18 05/30/23 14:31 Temperature 36.6 C Temperature Source Temporal Artery Scan Pulse Rate 71 59 L Pulse Rhythm Respiratory Rate 16 Blood Pressure 149/84 H Blood Pressure Mean 105 Pulse Oximetry 96 Oxygen Delivery Method Room Air Sepsis Recent Fever Within 48 Hours No Sepsis New/Unexplained Change in Mental Status N/A Sepsis Action Taken by Nursing No Action Required 05/30/23 15:40 05/30/23 15:30 05/30/23 18:32 Temperature Temperature Source Pulse Rate 61 55 L 61 Pulse Rhythm Regular Respiratory Rate 18 24 Blood Pressure 118/85 Blood Pressure Mean 96 Pulse Oximetry 95 98 Oxygen Delivery Method Room Air Room Air Sepsis Recent Fever Within 48 Hours Sepsis New/Unexplained Change in Mental Status Sepsis Action Taken by Nursing 05/30/23 18:13 Temperature Temperature Source Pulse Rate 59 L Pulse Rhythm Respiratory Rate 22 Blood Pressure 115/82 Blood Pressure Mean 93 Pulse Oximetry 97 Oxygen Delivery Method Room Air Sepsis Recent Fever Within 48 Hours Sepsis New/Unexplained Change in Mental Status Sepsis Action Taken by Nursing Laboratory Data 05/30/23 13:25 05/30/23 13:25 Lab Results 05/30/23 05/30/23 05/30/23 Range/Units 13:25 13:25 13:25 WBC 7.88 (4.8-10.8) K/ul RBC 5.16 (4.70-6.10) M/uL Hgb 16.0 (14.0-18.0) g/dl Hct 45.5 (42.0-52.0) % MCV 88.2 (80.0-100.0) fL MCH 31.0 (25.0-34.0) pg MCHC 35.2 (32.0-36.0) g/dL RDW Std Deviation 43.1 (36.4-46.3) fL RDW Coeff of Viki 13.3 (11.5-14.5) % Plt Count 253 (130-400) K/uL MPV 10.3 (9.4-12.4) fL Immature Gran % (Auto) 0.4 % Neut % (Auto) 60.6 % Lymph % (Auto) 22.8 % [place] % (Auto) 8.8 % Eos % (Auto) 6.6 % Baso % (Auto) 0.8 % Neut # (Auto) 4.78 (1.40-6.50) K/uL Lymph # (Auto) 1.80 (1.20-3.40) K/uL [place] # (Auto) 0.69 H (0.11-0.59) K/uL Eos # (Auto) 0.52 H (0.00-0.50) K/uL Baso # (Auto) 0.06 (0.00-0.20) K/uL Immature Gran # (Auto) 0.03 (0.01-0.20) K/uL PT 10.9 (9.0-12.0) Seconds INR 1.0 (0.9-1.1) APTT 28.0 (21.0-31.0) Seconds PTT Ratio 1.0 D-Dimer (0-500) ug/L FEU Sodium 140 (136-145) mmol/L Potassium 4.1 (3.5-5.1) mmol/L Chloride 108 H (98-107) mmol/L Carbon Dioxide 26 (21-32) mmol/L Anion Gap 6 (3-11) BUN 23 (6-23) mg/dl Creatinine 1.03 (0.6-1.4) mg/dl Est Cr Clr Drug Dosing 77.9 ml/min Est GFR ( Amer) 82.6 ml/min Est GFR (Non-Af Amer) 71.2 ml/min BUN/Creatinine Ratio 22.3 H (10-20) Glucose 91 (70-99(Fasting)) mg/dl Calcium 9.2 (8.6-10.3) mg/dl Total Bilirubin 0.6 (0.2-1.0) mg/dl AST 26 (13-39) U/L ALT 31 (7-52) U/L Alkaline Phosphatase 63 (34-104) U/L Troponin I High Sens 6.9 (0-20) pg/ml Total Protein 7.7 (6.0-8.3) gm/dl Albumin 4.5 (3.4-5.0) gm/dl Globulin 3.2 (2.5-4.0) gm/dl Albumin/Globulin Ratio 1.4 (0.9-2) 05/30/23 Range/Units 13:25 WBC (4.8-10.8) K/ul RBC (4.70-6.10) M/uL Hgb (14.0-18.0) g/dl Hct (42.0-52.0) % MCV (80.0-100.0) fL MCH (25.0-34.0) pg MCHC (32.0-36.0) g/dL RDW Std Deviation (36.4-46.3) fL RDW Coeff of Viki (11.5-14.5) % Plt Count (130-400) K/uL MPV (9.4-12.4) fL Immature Gran % (Auto) % Neut % (Auto) % Lymph % (Auto) % [place] % (Auto) % Eos % (Auto) % Baso % (Auto) % Neut # (Auto) (1.40-6.50) K/uL Lymph # (Auto) (1.20-3.40) K/uL [place] # (Auto) (0.11-0.59) K/uL Eos # (Auto) (0.00-0.50) K/uL Baso # (Auto) (0.00-0.20) K/uL Immature Gran # (Auto) (0.01-0.20) K/uL PT (9.0-12.0) Seconds INR (0.9-1.1) APTT (21.0-31.0) Seconds PTT Ratio D-Dimer 1070 H* (0-500) ug/L FEU Sodium (136-145) mmol/L Potassium (3.5-5.1) mmol/L Chloride (98-107) mmol/L Carbon Dioxide (21-32) mmol/L Anion Gap (3-11) BUN (6-23) mg/dl Creatinine (0.6-1.4) mg/dl Est Cr Clr Drug Dosing ml/min Est GFR ( Amer) ml/min Est GFR (Non-Af Amer) ml/min BUN/Creatinine Ratio (10-20) Glucose (70-99(Fasting)) mg/dl Calcium (8.6-10.3) mg/dl Total Bilirubin (0.2-1.0) mg/dl AST (13-39) U/L ALT (7-52) U/L Alkaline Phosphatase (34-104) U/L Troponin I High Sens (0-20) pg/ml Total Protein (6.0-8.3) gm/dl Albumin (3.4-5.0) gm/dl Globulin (2.5-4.0) gm/dl Albumin/Globulin Ratio (0.9-2) Administered Medications Gabapentin (Gabapentin 100 Mg Cap) 200 mg PO BID MARY Stop: 06/29/23 20:59 Last Admin: 05/30/23 23:24 Dose: 200 mg Documented By: KISHORW Rosuvastatin Calcium (Rosuvastatin Calcium 10 Mg Tab) 10 mg PO QPM MARY Stop: 06/29/23 20:59 Last Admin: 05/30/23 23:23 Dose: 10 mg Documented By: EJW Discontinued Medications Ioversol (Ioversol 350 Mg 125ml Prefilled Syringe) 93 ml IV ONCE ONE Stop: 05/30/23 16:05 Last Admin: 05/30/23 16:07 Dose: 93 ml Documented By: PLW Imaging Data Radiologist's Impression: Chest X-Ray 05/30/23 13:24 XR chest 1V not portable HISTORY: Chest pain, nonspecific COMPARISON: Chest 06/18/2022. FINDINGS: No pneumothorax. No pleural effusions. No new focal lung consolidations to suggest pneumonia. No evidence for pulmonary edema. There are poststernotomy changes. The heart is normal in size. A few bibasilar linear densities favor subsegmental atelectasis or scarring. IMPRESSION: No acute process. ACT 112: Negative or not required by law. Electronically signed by: Olvin Bangura M.D. 05/30/2023 2:05 PM Chest CTA 05/30/23 15:46 CT ANGIOGRAM OF THE CHEST CLINICAL HISTORY: Atypical chest pain. COMPARISON STUDY: Chest x-ray dated 05/30/2023. TECHNIQUE: Following the IV administration of 93 cc of Optiray 350, CT angiogram of the chest was performed from the upper abdomen to the thoracic inlet utilizing the pulmonary embolus protocol. Images are reviewed in the axial, sagittal, and coronal planes. 3-D MIPS images are created and assessed. IV contrast was administered without complication. A dose lowering technique was utilized adhering to the principles of ALARA. CT DOSE: 1059.61 mGy.cm FINDINGS: Thyroid: Imaged portions of the thyroid gland are normal in size and attenuation. Thoracic aorta: There is atherosclerotic calcification of the thoracic aorta. There is ectasia of the ascending thoracic aorta which measures up to 3.9 cm diameter. The remainder of the thoracic aorta is normal in caliber, and the arch demonstrates standard 3-vessel anatomy. No dissection is seen. Pulmonary vasculature: The pulmonary trunk is normal in caliber. There are no filling defects identified in main, lobar, or segmental pulmonary branches to suggest pulmonary embolus. Heart: The patient is status post midline sternotomy. The heart is enlarged and without pericardial effusion. The coronary arteries are densely calcified. Lungs and pleural spaces: Evaluation of the lung parenchyma is degraded by motion artifact. There is no airspace consolidation or pleural effusion. The trachea and central airways are clear. Foci of probable scarring are seen throughout both lungs, greatest at the lung bases. Mediastinum: There is no mediastinal lymphadenopathy. Leigh: Clear. Axillae: There is no axillary lymphadenopathy. Upper abdomen: There is a small hiatal hernia. A punctate nonobstructing calculus is seen in the left kidney on image #13. Skeletal structures: The skeletal structures are osteopenic. No lytic or blastic bony lesions are seen. Mild degenerative change of the liver, stenosis is noted in the spine. IMPRESSION: 1. There is no evidence of pulmonary embolus in the main, lobar, or segmental pulmonary arteries. 2. Cardiomegaly. 3. There is no airspace consolidation or pleural effusion. 4. Additional findings as above. ACT 112: Negative or not required by law. Electronically signed by: Donnell Bernal M.D. 05/30/2023 5:30 PM Discharge Plan Visit Data Chief Complaint: Chest Pain Stated Complaint: CHEST PAIN ED Provider: Steffi Campos Discharge Problem: Chest pain Patient Disposition: Admitted As Inpatient Discharge Instructions Interventions: ED Discharge Assessment Last Done: 05/30/23 21:00
[2023-05-30 14:23] LABS: Albumin Globulin Ratio 1.4 (0.9-2); Albumin Level 4.5 gm/dl (3.4-5.0); BUN Creatinine Ratio 22.3 (10-20); Bilirubin,Total 0.6 mg/dl (0.2-1.0); Calcium 9.2 mg/dl (8.6-10.3); Creatinine Clr Calc Pharmacy 77.9 ml/min; Est GFR (African American) 82.6 ml/min; Est GFR (Non-African American) 71.2 ml/min; Globulin 3.2 gm/dl (2.5-4.0); Potassium 4.1 mmol/L (3.5-5.1); Total Protein 7.7 gm/dl (6.0-8.3)
[2023-05-30 14:27] LABS: Prothrombin Time 10.9 Seconds (9.0-12.0)
[2023-05-30 14:28] LABS: Troponin I High Sensitivity 6.9 pg/ml (0-20)
[2023-05-30 15:45] LABS: D Dimer 1070 ug/L FEU (0-500)
[2023-05-30] MEDS ORDERED: IOVERSOL 350 MG 125mL Prefilled Syringe IV ONE (16:04)
--- NOTE | 2023-05-30 17:32 | CT Scan Report ---
CT ANGIOGRAM OF THE CHEST CLINICAL HISTORY: Atypical chest pain. COMPARISON STUDY: Chest x-ray dated 05/30/2023. TECHNIQUE: Following the IV administration of 93 cc of Optiray 350, CT angiogram of the chest was per formed from the upper abdomen to the thoracic inlet utilizing the pulmonary embolus protocol. Images are reviewed in the axial, sagittal, and coronal planes. 3-D MIPS images are created and assessed. IV contrast was administered without complication. A dose lowering technique was utilized adhering to the principles of ALARA. CT DOSE: 1059.61 mGy.cm FINDINGS: Thyroid: Imaged portions of the thyroid gland are normal in size and attenuation. Thoracic aorta: There is atherosclerotic calcification of the thoracic aorta. There is ectasia of the ascending thoracic aorta which measures up to 3.9 cm diameter. The remainder of the thoracic aorta i s normal in caliber, and the arch demonstrates standard 3-vessel anatomy. No dissection is seen. Pulmonary vasculature: The pulmonary trunk is normal in caliber. There are no filling defects identif ied in main, lobar, or segmental pulmonary branches to suggest pulmonary embolus. Heart: The patient is status post midline sternotomy. The heart is enlarged and without pericardial e ffusion. The coronary arteries are densely calcified. Lungs and pleural spaces: Evaluation of the lung parenchyma is degraded by motion artifact. There is no airspace consolidation or pleural effusion. The trachea and central airways are clear. Foci of pro bable scarring are seen throughout both lungs, greatest at the lung bases. Mediastinum: There is no mediastinal lymphadenopathy. Leigh: Clear. Axillae: There is no axillary lymphadenopathy. Upper abdomen: There is a small hiatal hernia. A punctate nonobstructing calculus is seen in the left kidney on image #13. Skeletal structures: The skeletal structures are osteopenic. No lytic or blastic bony lesions are see n. Mild degenerative change of the liver, stenosis is noted in the spine. IMPRESSION: 1. There is no evidence of pulmonary embolus in the main, lobar, or segmental pulmonary arteries. 2. Cardiomegaly. 3. There is no airspace consolidation or pleural effusion. 4. Additional findings as above. ACT 112: Negative or not required by law. Electronically signed by: Donnell Bernal M.D. 05/30/2023 5:30 PM
--- NOTE | 2023-05-30 18:45 | History & Physical Report ---
Date of Service May 30, 2023 Assessment & Plan (1) Chest pain: Plan: 73yo male with history of CAD s/p CABG x 2V in presents with two days of exertional chest pain. Troponin x 1 is unremarkable. EKG with no acute ischemic changes. Patient does have reproducible chest pain as well as an increase in GERD symptoms recently which could be contributing to his present symptoms. -Observation to medical with telemetry -Trend troponin -Will order Dobutamine stress echo - patient with poor balance and peripheral neuropathy, may not be able to complete an exercise stress test. - NPO after midnight -Cardiology consultation appreciated -Continue ASA 81mg po daily -Continue Crestor 10mg po daily -Baseline bradycardia - no beta cynthia (2) GERD (gastroesophageal reflux disease): Plan: Chronic. He reports an increase in GERD symptoms of late for which he has been taking TUMS -Will start Protonix 40mg po daily -Maalox as needed F/E/N -Heplock. Electrolytes WNL. Check Mg and replete as needed. Heart healthy diet as tolerated - NPO after midnight Ppx - Low risk for DVT, no prophylaxis for now Code - Full Dispo - Observation to medical with telemetry History of Present Illness Chief Complaint: chest pain Primary Care Provider: Lori Horton MD Peter Mcgrath is a 73yo male with history of CAD s/p CABG x 2V performed in the in [facility], AAA s/p repair 3 years ago presenting with chest heaviness. Patient reports that he began experiencing intermittent chest heaviness two days ago on the evening of 05/28/23. The chest pain is dull, located on the left side of his chest and worse with exertion such as walking or going up stairs. Pain is relieved after resting for a couple of minutes. Pain is non-radiating, non-positional and non-pleuritic. He has no associated diaphoresis, nausea or palpitations. No shortness of breath or dizziness. No trauma or injury/ increase activity/lifting Patient is otherwise active. He walks frequently and does yard work. Denies exertional symptoms of chest pain or shortness of breath prior to 2 days ago. He has had some increased belching and throat clearing In the ER he is afebrile, HD stable, NAD Allergies Allergy/AdvReac Type Severity Reaction Status Date / Time No Known Allergies Allergy Verified 05/30/23 17:04 Home Medications Medication Instructions Recorded Confirmed Type rosuvastatin 10 mg tablet 10 mg PO QPM 03/05/21 05/30/23 History fluticasone propionate 50 2 spray intranasal QAM 05/22/22 05/30/23 History mcg/actuation nasal spray,suspension multivitamin 1 tab PO QAM 05/22/22 05/30/23 History aspirin 81 mg tablet,delayed 81 mg PO DAILY 07/31/22 05/30/23 History release (Adult Low Dose Aspirin) coenzyme Q10 200 mg capsule 200 mg PO DAILY 07/31/22 05/30/23 History acetaminophen 500 mg tablet 1,000 mg PO DIRECTED PRN Pain 02/02/23 05/30/23 History (Tylenol Extra Strength) vit 2 tab PO DAILY 02/02/23 05/30/23 History [id number] 500 mg-50 mg-25 mg-40 mg tablet (Bioflex) Cataract Eye Drops 1 drp ophthalmic (eye) DIRECTED 05/30/23 05/30/23 History gabapentin 100 mg capsule 200 mg PO BID 05/30/23 05/30/23 History ibuprofen 200 mg tablet 200 mg PO DIRECTED PRN Pain 05/30/23 05/30/23 History Past Med/Surg History Medical History (Updated 05/30/23 @ 19:01 by Jacquelyn Wharton DO) Abdominal aortic aneurysm s/p repair (2018) Anxiety Coronary artery disease History of [place]. s/p CABG x2 (1993) GERD (gastroesophageal reflux disease) Hyperlipidemia Kidney stones PASSED ON OWN Surgical History History of cardiac cath Most recent > no stents History of colonoscopy 2021 History of open heart surgery CABG x2 (1993) S/P AAA (abdominal aortic aneurysm) repair 2019 ([facility]/[place], [place]) S/P appendectomy Family History Father Heart disease Mother Mental disorder Brother Cancer Uncle Family history of diabetes mellitus Social History Smoking Status: Former smoker Second Hand Exposure: No; Do You Dip or Chew Tobacco: No; Hx Alcohol Use: Yes Alcohol type: beer Hx Substance Use: No Preferred Language: Greek Communication Ability: Effective 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 Required: No Beliefs That Will Affect Care: None marital status: Current Living Situation: Spouse current occupational status: retired Feels Safe at Home: Yes Assistive Devices: Bedside Commode, Cane, Walker and Wheelchair Review of Systems Review of Systems: All systems reviewed & are unremarkable except as noted in HPI & below Physical Exam Physical Exam: General: patient resting comfortably, NAD, non-toxic in appearance, AA&O x 4 Skin: warm, dry, intact, no rashes or lesions HEENT: NC/AT, PERRL, EOMI, anicteric sclera, conjunctiva without injection, external ear normal to inspection and nontender, nares patent, moist mucus membranes, dentition intact, no oropharyngeal lesions, neck supple, trachea midline, no LAD, no thyromegaly, no JVD Heart: +S1/S2, regular, bradycardic at 56bpm, no m/r/g, some reproducible chest wall pain Lungs: equal air entry bilaterally, no rales/rhonchi/wheezes Abd: +BS, soft, NT/ND, no masses/organomegaly/ascites Ext: warm, 2+ pulses in UE/LE bilaterally, no clubbing/cyanosis or edema Neuro: nonfocal, patient AA&O x 4, speech intact, no facial droop, moving all extremities on command with equal strength 5/5 Results & Data Results & Data Vital Signs (Past 12 Hours) Vital Signs Temp Pulse Resp BP Pulse Ox O2 Del Method 05/30/23 18:13 59 L 22 115/82 97 Room Air 05/30/23 18:32 61 05/30/23 15:30 55 L 24 118/85 98 Room Air 05/30/23 15:40 61 18 95 Room Air 05/30/23 14:31 59 L 05/30/23 13:18 Room Air 05/30/23 13:18 36.6 C 71 16 149/84 H 96 Laboratory Results Laboratory Results WBC 7.88 K/ul (4.8-10.8) 05/30/23 13:25 RBC 5.16 M/uL (4.70-6.10) 05/30/23 13:25 Hgb 16.0 g/dl (14.0-18.0) 05/30/23 13:25 Hct 45.5 % (42.0-52.0) 05/30/23 13:25 MCV 88.2 fL (80.0-100.0) 05/30/23 13:25 MCH 31.0 pg (25.0-34.0) 05/30/23 13:25 MCHC 35.2 g/dL (32.0-36.0) 05/30/23 13:25 RDW Std Deviation 43.1 fL (36.4-46.3) 05/30/23 13:25 RDW Coeff of Viki 13.3 % (11.5-14.5) 05/30/23 13:25 Plt Count 253 K/uL (130-400) 05/30/23 13:25 MPV 10.3 fL (9.4-12.4) 05/30/23 13:25 Immature Gran % (Auto) 0.4 % 05/30/23 13:25 Neut % (Auto) 60.6 % 05/30/23 13:25 Lymph % (Auto) 22.8 % 05/30/23 13:25 [place] % (Auto) 8.8 % 05/30/23 13:25 Eos % (Auto) 6.6 % 05/30/23 13:25 Baso % (Auto) 0.8 % 05/30/23 13:25 Neut # (Auto) 4.78 K/uL (1.40-6.50) 05/30/23 13:25 Lymph # (Auto) 1.80 K/uL (1.20-3.40) 05/30/23 13:25 [place] # (Auto) 0.69 K/uL (0.11-0.59) H 05/30/23 13:25 Eos # (Auto) 0.52 K/uL (0.00-0.50) H 05/30/23 13:25 Baso # (Auto) 0.06 K/uL (0.00-0.20) 05/30/23 13:25 Immature Gran # (Auto) 0.03 K/uL (0.01-0.20) 05/30/23 13:25 PT 10.9 Seconds (9.0-12.0) 05/30/23 13:25 INR 1.0 (0.9-1.1) 05/30/23 13:25 APTT 28.0 Seconds (21.0-31.0) 05/30/23 13:25 PTT Ratio 1.0 05/30/23 13:25 D-Dimer 1070 ug/L FEU (0-500) H* 05/30/23 13:25 Sodium 140 mmol/L (136-145) 05/30/23 13:25 Potassium 4.1 mmol/L (3.5-5.1) 05/30/23 13:25 Chloride 108 mmol/L (98-107) H 05/30/23 13:25 Carbon Dioxide 26 mmol/L (21-32) 05/30/23 13:25 Anion Gap 6 (3-11) 05/30/23 13:25 BUN 23 mg/dl (6-23) 05/30/23 13:25 Creatinine 1.03 mg/dl (0.6-1.4) 05/30/23 13:25 Est Cr Clr Drug Dosing 77.9 ml/min 05/30/23 13:25 Est GFR ( Amer) 82.6 ml/min 05/30/23 13:25 Est GFR (Non-Af Amer) 71.2 ml/min 05/30/23 13:25 BUN/Creatinine Ratio 22.3 (10-20) H 05/30/23 13:25 Glucose 91 mg/dl (70-99(Fasting)) 05/30/23 13:25 Calcium 9.2 mg/dl (8.6-10.3) 05/30/23 13:25 Total Bilirubin 0.6 mg/dl (0.2-1.0) 05/30/23 13:25 AST 26 U/L (13-39) 05/30/23 13:25 ALT 31 U/L (7-52) 05/30/23 13:25 Alkaline Phosphatase 63 U/L (34-104) 05/30/23 13:25 Troponin I High Sens 6.9 pg/ml (0-20) 05/30/23 13:25 Total Protein 7.7 gm/dl (6.0-8.3) 05/30/23 13:25 Albumin 4.5 gm/dl (3.4-5.0) 05/30/23 13:25 Globulin 3.2 gm/dl (2.5-4.0) 05/30/23 13:25 Albumin/Globulin Ratio 1.4 (0.9-2) 05/30/23 13:25 Impressions Chest X-Ray 05/30/23 13:24 XR chest 1V not portable HISTORY: Chest pain, nonspecific COMPARISON: Chest 06/18/2022. FINDINGS: No pneumothorax. No pleural effusions. No new focal lung consolidations to suggest pneumonia. No evidence for pulmonary edema. There are poststernotomy changes. The heart is normal in size. A few bibasilar linear densities favor subsegmental atelectasis or scarring. IMPRESSION: No acute process. ACT 112: Negative or not required by law. Electronically signed by: Olvin Bangura M.D. 05/30/2023 2:05 PM Chest CTA 05/30/23 15:46 CT ANGIOGRAM OF THE CHEST CLINICAL HISTORY: Atypical chest pain. COMPARISON STUDY: Chest x-ray dated 05/30/2023. TECHNIQUE: Following the IV administration of 93 cc of Optiray 350, CT angiogram of the chest was performed from the upper abdomen to the thoracic inlet utilizing the pulmonary embolus protocol. Images are reviewed in the axial, sagittal, and coronal planes. 3-D MIPS images are created and assessed. IV contrast was administered without complication. A dose lowering technique was utilized adhering to the principles of ALARA. CT DOSE: 1059.61 mGy.cm FINDINGS: Thyroid: Imaged portions of the thyroid gland are normal in size and attenuation. Thoracic aorta: There is atherosclerotic calcification of the thoracic aorta. There is ectasia of the ascending thoracic aorta which measures up to 3.9 cm diameter. The remainder of the thoracic aorta is normal in caliber, and the arch demonstrates standard 3-vessel anatomy. No dissection is seen. Pulmonary vasculature: The pulmonary trunk is normal in caliber. There are no filling defects identified in main, lobar, or segmental pulmonary branches to suggest pulmonary embolus. Heart: The patient is status post midline sternotomy. The heart is enlarged and without pericardial effusion. The coronary arteries are densely calcified. Lungs and pleural spaces: Evaluation of the lung parenchyma is degraded by motion artifact. There is no airspace consolidation or pleural effusion. The trachea and central airways are clear. Foci of probable scarring are seen throughout both lungs, greatest at the lung bases. Mediastinum: There is no mediastinal lymphadenopathy. Leigh: Clear. Axillae: There is no axillary lymphadenopathy. Upper abdomen: There is a small hiatal hernia. A punctate nonobstructing calculus is seen in the left kidney on image #13. Skeletal structures: The skeletal structures are osteopenic. No lytic or blastic bony lesions are seen. Mild degenerative change of the liver, stenosis is noted in the spine. IMPRESSION: 1. There is no evidence of pulmonary embolus in the main, lobar, or segmental pulmonary arteries. 2. Cardiomegaly. 3. There is no airspace consolidation or pleural effusion. 4. Additional findings as above. ACT 112: Negative or not required by law. Electronically signed by: Donnell Bernal M.D. 05/30/2023 5:30 PM ECG Additional Comments: EKG with NSR at 65bpm, left axis deviation, QX=707, WAO=085, MGf=334. Poor R wave progression, old septal infarct. No ST-T elevations. PG Care Time/CCT Total # of Minutes Spent Total Time Spent with Patient: Total time spent is greater than 50% in coordination of care (as documented) at patient's floor/unit and/or counseling patient: Coding Level of Care Code 96162 INT INP/OBS CARE 2/55MIN Diagnoses Chest pain R07.9 GERD (gastroesophageal reflux disease) K21.9
[2023-05-30] MEDS ORDERED: ALUMINUM/MAGNESIUM SUSP 30 ML UDC PO PRN (21:00)
[2023-05-30] MEDS ORDERED: ACETAMINOPHEN 325 MG TAB PO PRN (21:00)
[2023-05-30] MEDS ORDERED: ROSUVASTATIN CALCIUM 10 MG TAB PO SCH (21:00)
[2023-05-30] MEDS ORDERED: ONDANSETRON INJ 2 MG/ML 2 ML VIAL IV PRN (21:00)
[2023-05-30 22:35] LABS: Magnesium 2.2 mg/dl (1.7-2.4); Troponin I High Sensitivity 8.6 pg/ml (0-20)
[2023-05-30] MEDS: GABAPENTIN 100 MG CAP PO SCH (23:24)
[2023-05-31 04:31] LABS: Hematocrit (blood only) 43.5 % (42.0-52.0); Hemoglobin 14.9 g/dl (14.0-18.0); Mean Corpuscular Hemoglobin 30.5 pg (25.0-34.0); Mean Corpuscular Hgb Conc 34.3 g/dL (32.0-36.0); Mean Platelet Volume 9.8 fL (9.4-12.4); Platelet Count 203 K/uL (130-400); RDW Coefficient of Variation 13.2 % (11.5-14.5); RDW Standard Deviation 42.9 fL (36.4-46.3); Red Blood Count 4.89 M/uL (4.70-6.10); White Blood Count 9.05 K/ul (4.8-10.8)
[2023-05-31 04:44] LABS: BUN Creatinine Ratio 19.8 (10-20); Calcium 8.6 mg/dl (8.6-10.3); Creatinine Clr Calc Pharmacy 75.7 ml/min; Est GFR (African American) 79.7 ml/min; Est GFR (Non-African American) 68.8 ml/min; Potassium 4.1 mmol/L (3.5-5.1)
--- NOTE | 2023-05-31 08:53 | Hospitalist Progress Note ---
Date of Service May 31, 2023 Assessment & Plan (1) Chest pain: Plan: 73yo male with history of CAD s/p CABG x 2V in presents with two days of exertional chest pain. Troponin x 1 is unremarkable. EKG with no acute ischemic changes. Patient does have reproducible chest pain as well as an increase in GERD symptoms recently which could be contributing to his present symptoms. -Observation to medical with telemetry -Trend troponin -Will order Dobutamine stress echo - patient with poor balance and peripheral neuropathy, may not be able to complete an exercise stress test. - NPO after midnight -Cardiology consultation appreciated -Continue ASA 81mg po daily -Continue Crestor 10mg po daily -Baseline bradycardia - no beta cynthia (2) GERD (gastroesophageal reflux disease): Plan: Chronic. He reports an increase in GERD symptoms of late for which he has been taking TUMS -Will start Protonix 40mg po daily -Maalox as needed F/E/N -Heplock. Electrolytes WNL. Check Mg and replete as needed. Heart healthy diet as tolerated - NPO after midnight Ppx - Low risk for DVT, no prophylaxis for now Code - Full Dispo - Observation to medical with telemetry Admission and Anticipated Discharge Date Admission Date: May 30, 2023 Results & Data Results & Data Vital Signs (Past 12 Hours) Vital Signs Temp Pulse Pulse Resp BP BP Pulse Ox 05/31/23 08:00 56 L 15 103/69 96 05/31/23 07:14 52 L 05/31/23 06:00 51 L 12 124/70 97 05/31/23 05:30 52 L 13 97 05/31/23 05:00 51 L 12 130/69 95 05/31/23 04:30 54 L 13 05/31/23 04:00 48 L 14 110/54 L 96 05/31/23 03:30 55 L 15 95 05/31/23 03:00 72 15 134/77 95 05/31/23 02:30 46 L 13 95 05/31/23 02:01 62 16 126/58 L 96 05/31/23 01:30 46 L 16 05/31/23 01:00 53 L 14 153/84 H 05/31/23 00:30 48 L 13 05/31/23 00:00 51 L 13 133/83 05/30/23 23:30 51 L 12 95 05/30/23 22:30 53 L 15 96 05/30/23 22:00 56 L 14 146/81 H 97 05/30/23 22:02 36.5 C 52 L 12 146/81 H 96 05/30/23 21:28 54 L 05/30/23 21:30 60 24 90 05/30/23 21:00 51 L 15 130/76 96 O2 Del Method 05/31/23 08:00 05/31/23 07:14 05/31/23 06:00 05/31/23 05:30 05/31/23 05:00 05/31/23 04:30 05/31/23 04:00 05/31/23 03:30 05/31/23 03:00 05/31/23 02:30 05/31/23 02:01 05/31/23 01:30 05/31/23 01:00 05/31/23 00:30 05/31/23 00:00 05/30/23 23:30 05/30/23 22:30 05/30/23 22:00 05/30/23 22:02 Room Air 05/30/23 21:28 05/30/23 21:30 05/30/23 21:00 Laboratory Results 05/31/23 05/31/23 05/30/23 Range/Units 04:06 04:06 21:30 WBC 9.05 (4.8-10.8) K/ul RBC 4.89 (4.70-6.10) M/uL Hgb 14.9 (14.0-18.0) g/dl Hct 43.5 (42.0-52.0) % MCV 89.0 (80.0-100.0) fL MCH 30.5 (25.0-34.0) pg MCHC 34.3 (32.0-36.0) g/dL RDW Std Deviation 42.9 (36.4-46.3) fL RDW Coeff of Viki 13.2 (11.5-14.5) % Plt Count 203 (130-400) K/uL MPV 9.8 (9.4-12.4) fL Immature Gran % (Auto) % Neut % (Auto) % Lymph % (Auto) % [place] % (Auto) % Eos % (Auto) % Baso % (Auto) % Neut # (Auto) (1.40-6.50) K/uL Lymph # (Auto) (1.20-3.40) K/uL [place] # (Auto) (0.11-0.59) K/uL Eos # (Auto) (0.00-0.50) K/uL Baso # (Auto) (0.00-0.20) K/uL Immature Gran # (Auto) (0.01-0.20) K/uL PT (9.0-12.0) Seconds INR (0.9-1.1) APTT (21.0-31.0) Seconds PTT Ratio D-Dimer (0-500) ug/L FEU Sodium 140 (136-145) mmol/L Potassium 4.1 (3.5-5.1) mmol/L Chloride 107 (98-107) mmol/L Carbon Dioxide 27 (21-32) mmol/L Anion Gap 6 (3-11) BUN 21 (6-23) mg/dl Creatinine 1.06 (0.6-1.4) mg/dl Est Cr Clr Drug Dosing 75.7 ml/min Est GFR ( Amer) 79.7 ml/min Est GFR (Non-Af Amer) 68.8 ml/min BUN/Creatinine Ratio 19.8 (10-20) Glucose 89 (70-99(Fasting)) mg/dl Calcium 8.6 (8.6-10.3) mg/dl Magnesium 2.2 (1.7-2.4) mg/dl Total Bilirubin (0.2-1.0) mg/dl AST (13-39) U/L ALT (7-52) U/L Alkaline Phosphatase (34-104) U/L Troponin I High Sens 8.6 (0-20) pg/ml Total Protein (6.0-8.3) gm/dl Albumin (3.4-5.0) gm/dl Globulin (2.5-4.0) gm/dl Albumin/Globulin Ratio (0.9-2) 05/30/23 05/30/23 05/30/23 Range/Units 13:25 13:25 13:25 WBC (4.8-10.8) K/ul RBC (4.70-6.10) M/uL Hgb (14.0-18.0) g/dl Hct (42.0-52.0) % MCV (80.0-100.0) fL MCH (25.0-34.0) pg MCHC (32.0-36.0) g/dL RDW Std Deviation (36.4-46.3) fL RDW Coeff of Viki (11.5-14.5) % Plt Count (130-400) K/uL MPV (9.4-12.4) fL Immature Gran % (Auto) % Neut % (Auto) % Lymph % (Auto) % [place] % (Auto) % Eos % (Auto) % Baso % (Auto) % Neut # (Auto) (1.40-6.50) K/uL Lymph # (Auto) (1.20-3.40) K/uL [place] # (Auto) (0.11-0.59) K/uL Eos # (Auto) (0.00-0.50) K/uL Baso # (Auto) (0.00-0.20) K/uL Immature Gran # (Auto) (0.01-0.20) K/uL PT 10.9 (9.0-12.0) Seconds INR 1.0 (0.9-1.1) APTT 28.0 (21.0-31.0) Seconds PTT Ratio 1.0 D-Dimer 1070 H* (0-500) ug/L FEU Sodium 140 (136-145) mmol/L Potassium 4.1 (3.5-5.1) mmol/L Chloride 108 H (98-107) mmol/L Carbon Dioxide 26 (21-32) mmol/L Anion Gap 6 (3-11) BUN 23 (6-23) mg/dl Creatinine 1.03 (0.6-1.4) mg/dl Est Cr Clr Drug Dosing 77.9 ml/min Est GFR ( Amer) 82.6 ml/min Est GFR (Non-Af Amer) 71.2 ml/min BUN/Creatinine Ratio 22.3 H (10-20) Glucose 91 (70-99(Fasting)) mg/dl Calcium 9.2 (8.6-10.3) mg/dl Magnesium (1.7-2.4) mg/dl Total Bilirubin 0.6 (0.2-1.0) mg/dl AST 26 (13-39) U/L ALT 31 (7-52) U/L Alkaline Phosphatase 63 (34-104) U/L Troponin I High Sens 6.9 (0-20) pg/ml Total Protein 7.7 (6.0-8.3) gm/dl Albumin 4.5 (3.4-5.0) gm/dl Globulin 3.2 (2.5-4.0) gm/dl Albumin/Globulin Ratio 1.4 (0.9-2) 05/30/23 Range/Units 13:25 WBC 7.88 (4.8-10.8) K/ul RBC 5.16 (4.70-6.10) M/uL Hgb 16.0 (14.0-18.0) g/dl Hct 45.5 (42.0-52.0) % MCV 88.2 (80.0-100.0) fL MCH 31.0 (25.0-34.0) pg MCHC 35.2 (32.0-36.0) g/dL RDW Std Deviation 43.1 (36.4-46.3) fL RDW Coeff of Viki 13.3 (11.5-14.5) % Plt Count 253 (130-400) K/uL MPV 10.3 (9.4-12.4) fL Immature Gran % (Auto) 0.4 % Neut % (Auto) 60.6 % Lymph % (Auto) 22.8 % [place] % (Auto) 8.8 % Eos % (Auto) 6.6 % Baso % (Auto) 0.8 % Neut # (Auto) 4.78 (1.40-6.50) K/uL Lymph # (Auto) 1.80 (1.20-3.40) K/uL [place] # (Auto) 0.69 H (0.11-0.59) K/uL Eos # (Auto) 0.52 H (0.00-0.50) K/uL Baso # (Auto) 0.06 (0.00-0.20) K/uL Immature Gran # (Auto) 0.03 (0.01-0.20) K/uL PT (9.0-12.0) Seconds INR (0.9-1.1) APTT (21.0-31.0) Seconds PTT Ratio D-Dimer (0-500) ug/L FEU Sodium (136-145) mmol/L Potassium (3.5-5.1) mmol/L Chloride (98-107) mmol/L Carbon Dioxide (21-32) mmol/L Anion Gap (3-11) BUN (6-23) mg/dl Creatinine (0.6-1.4) mg/dl Est Cr Clr Drug Dosing ml/min Est GFR ( Amer) ml/min Est GFR (Non-Af Amer) ml/min BUN/Creatinine Ratio (10-20) Glucose (70-99(Fasting)) mg/dl Calcium (8.6-10.3) mg/dl Magnesium (1.7-2.4) mg/dl Total Bilirubin (0.2-1.0) mg/dl AST (13-39) U/L ALT (7-52) U/L Alkaline Phosphatase (34-104) U/L Troponin I High Sens (0-20) pg/ml Total Protein (6.0-8.3) gm/dl Albumin (3.4-5.0) gm/dl Globulin (2.5-4.0) gm/dl Albumin/Globulin Ratio (0.9-2) Diagnostic Findings Chest X-Ray 05/30/23 13:24 XR chest 1V not portable HISTORY: Chest pain, nonspecific COMPARISON: Chest 06/18/2022. FINDINGS: No pneumothorax. No pleural effusions. No new focal lung consolidations to suggest pneumonia. No evidence for pulmonary edema. There are poststernotomy changes. The heart is normal in size. A few bibasilar linear densities favor subsegmental atelectasis or scarring. IMPRESSION: No acute process. ACT 112: Negative or not required by law. Electronically signed by: Olvin Bangura M.D. 05/30/2023 2:05 PM Chest CTA 05/30/23 15:46 CT ANGIOGRAM OF THE CHEST CLINICAL HISTORY: Atypical chest pain. COMPARISON STUDY: Chest x-ray dated 05/30/2023. TECHNIQUE: Following the IV administration of 93 cc of Optiray 350, CT angiogram of the chest was performed from the upper abdomen to the thoracic inlet utilizing the pulmonary embolus protocol. Images are reviewed in the axial, sagittal, and coronal planes. 3-D MIPS images are created and assessed. IV contrast was administered without complication. A dose lowering technique was utilized adhering to the principles of ALARA. CT DOSE: 1059.61 mGy.cm FINDINGS: Thyroid: Imaged portions of the thyroid gland are normal in size and attenuation. Thoracic aorta: There is atherosclerotic calcification of the thoracic aorta. There is ectasia of the ascending thoracic aorta which measures up to 3.9 cm diameter. The remainder of the thoracic aorta is normal in caliber, and the arch demonstrates standard 3-vessel anatomy. No dissection is seen. Pulmonary vasculature: The pulmonary trunk is normal in caliber. There are no filling defects identified in main, lobar, or segmental pulmonary branches to s uggest pulmonary embolus. Heart: The patient is status post midline sternotomy. The heart is enlarged and without pericardial effusion. The coronary arteries are densely calcified. Lungs and pleural spaces: Evaluation of the lung parenchyma is degraded by motion artifact. There is no airspace consolidation or pleural effusion. The trachea and central airways are clear. Foci of probable scarring are seen throughout both lungs, greatest at the lung bases. Mediastinum: There is no mediastinal lymphadenopathy. Leigh: Clear. Axillae: There is no axillary lymphadenopathy. Upper abdomen: There is a small hiatal hernia. A punctate nonobstructing calculus is seen in the left kidney on image #13. Skeletal structures: The skeletal structures are osteopenic. No lytic or blastic bony lesions are seen. Mild degenerative change of the liver, stenosis is noted in the spine. IMPRESSION: 1. There is no evidence of pulmonary embolus in the main, lobar, or segmental pulmonary arteries. 2. Cardiomegaly. 3. There is no airspace consolidation or pleural effusion. 4. Additional findings as above. ACT 112: Negative or not required by law. Electronically signed by: Donnell Bernal M.D. 05/30/2023 5:30 PM PG Care Time/CCT Total # of Minutes Spent Total Time Spent with Patient: Total time spent is greater than 50% in coordination of care (as documented) at patient's floor/unit and/or counseling patient: Coding Diagnoses Chest pain R07.9 GERD (gastroesophageal reflux disease) K21.9
[2023-05-31] MEDS ORDERED: FLUTICASONE PROPIONATE NA SPR 16 GM BTL SCH (09:00)
[2023-05-31] MEDS ORDERED: ASPIRIN 81 MG ECTAB PO SCH (09:00)
[2023-05-31] MEDS ORDERED: PANTOprazole 40 MG TAB PO SCH (09:00)
[2023-05-31] MEDS ORDERED: DOBUTamine HCL 12.5 MG/ML 20 ML VIAL IV ONE (09:41)
[2023-05-31] MEDS ORDERED: METOPROLOL TARTRATE 1 MG/ML VIAL IV ONE (09:41)
[2023-05-31] MEDS ORDERED: NITROGLYCERIN SL 0.4 MG/TAB TAB ONE (09:41)
[2023-05-31] MEDS ORDERED: ATROPINE SULFATE 0.1 MG/ML 10ML SYR IV ONE (09:41)
--- NOTE | 2023-05-31 11:24 | Electrocardiogram Report ---
Test Reason : Blood Pressure : / mmHG Vent. Rate : 065 BPM Atrial Rate : 065 BPM P-R Int : 176 ms QRS Dur : 114 ms QT Int : 408 ms P-R-T Axes : 034 -39 075 degrees QTc Int : 424 ms Normal sinus rhythm Left axis deviation Poor R wave progression, consider anterior OH vs. lead placement vs. LVH Abnormal ECG When compared with ECG of 19-JUN-2022 05:03, Septal infarct is now Present ST no longer elevated in Lateral leads Confirmed by Laureano Bolanos ([id number]) on 05/31/2023 11:24:46 AM Referred By: REFERRED SELF Confirmed By:Laureano Bolanos
[2023-05-31] MEDS: GABAPENTIN 100 MG CAP PO SCH (11:29)
--- NOTE | 2023-05-31 12:01 | Discharge Summary ---
Date of Service May 31, 2023 Admission HPI Per Admitting Provider Peter Mcgrath is a 73yo male with history of CAD s/p CABG x 2V performed in the in [facility], AAA s/p repair 3 years ago presenting with chest heaviness. Patient reports that he began experiencing intermittent chest heaviness two days ago on the evening of 05/28/23. The chest pain is dull, located on the left side of his chest and worse with exertion such as walking or going up stairs. Pain is relieved after resting for a couple of minutes. Pain is non-radiating, non-positional and non-pleuritic. He has no associated diaphoresis, nausea or palpitations. No shortness of breath or dizziness. No trauma or injury/ increase activity/lifting Patient is otherwise active. He walks frequently and does yard work. Denies exertional symptoms of chest pain or shortness of breath prior to 2 days ago. He has had some increased belching and throat clearing In the ER he is afebrile, HD stable, NAD Admission Exam Per Admitting Provider General: patient resting comfortably, NAD, non-toxic in appearance, AA&O x 4 Skin: warm, dry, intact, no rashes or lesions HEENT: NC/AT, PERRL, EOMI, anicteric sclera, conjunctiva without injection, external ear normal to inspection and nontender, nares patent, moist mucus membranes, dentition intact, no oropharyngeal lesions, neck supple, trachea midline, no LAD, no thyromegaly, no JVD Heart: +S1/S2, regular, bradycardic at 56bpm, no m/r/g, some reproducible chest wall pain Lungs: equal air entry bilaterally, no rales/rhonchi/wheezes Abd: +BS, soft, NT/ND, no masses/organomegaly/ascites Ext: warm, 2+ pulses in UE/LE bilaterally, no clubbing/cyanosis or edema Neuro: nonfocal, patient AA&O x 4, speech intact, no facial droop, moving all extremities on command with equal strength 5/5 Principal Diagnosis Chest pain r/o ACS, GERD Discharge Exam General: WD/WN male sitting up in bed, at bedside, NAD, anxious to be discharge, no chest pain reported HEENT; head normocephalic atraumatic, pupils equal in size, mmm, trachea midline, no exudates Resp: CTA, no w/c/r, on room air CV: RRR (bradycardic on monitor), no significant m/r/g, no pitting edema/calf tenderness GI: +BS, soft/NT : no joiner MSK/Neuro: no focal deficits, no slurred speech/facial droop, answering questions appropriately, following commands Psych: alert, oriented x 3, occasional forgetfulness at baseline, some anxiety reported about follow up with neurology for brain lesion Discharge Data Allergies Allergy/AdvReac Type Severity Reaction Status Date / Time No Known Allergies Allergy Verified 05/30/23 17:04 Consultations 05/30/23 21:00 Consult Cardiology Routine Ordered Studies Chest X-Ray 05/30/23 13:24 XR chest 1V not portable HISTORY: Chest pain, nonspecific COMPARISON: Chest 06/18/2022. FINDINGS: No pneumothorax. No pleural effusions. No new focal lung consolidations to suggest pneumonia. No evidence for pulmonary edema. There are poststernotomy changes. The heart is normal in size. A few bibasilar linear densities favor subsegmental atelectasis or scarring. IMPRESSION: No acute process. ACT 112: Negative or not required by law. Electronically signed by: Olvin Bangura M.D. 05/30/2023 2:05 PM Chest CTA 05/30/23 15:46 CT ANGIOGRAM OF THE CHEST CLINICAL HISTORY: Atypical chest pain. COMPARISON STUDY: Chest x-ray dated 05/30/2023. TECHNIQUE: Following the IV administration of 93 cc of Optiray 350, CT angiogram of the chest was performed from the upper abdomen to the thoracic inlet utilizing the pulmonary embolus protocol. Images are reviewed in the axial, s agittal, and coronal planes. 3-D MIPS images are created and assessed. IV contrast was administered without complication. A dose lowering technique was utilized adhering to the principles of ALARA. CT DOSE: 1059.61 mGy.cm FINDINGS: Thyroid: Imaged portions of the thyroid gland are normal in size and attenuation. Thoracic aorta: There is atherosclerotic calcification of the thoracic aorta. There is ectasia of the ascending thoracic aorta which measures up to 3.9 cm diameter. The remainder of the thoracic aorta is normal in caliber, and the arch demonstrates standard 3-vessel anatomy. No dissection is seen. Pulmonary vasculature: The pulmonary trunk is normal in caliber. There are no filling defects identified in main, lobar, or segmental pulmonary branches to suggest pulmonary embolus. Heart: The patient is status post midline sternotomy. The heart is enlarged and without pericardial effusion. The coronary arteries are densely calcified. Lungs and pleural spaces: Evaluation of the lung parenchyma is degraded by motion artifact. There is no airspace consolidation or pleural effusion. The trachea and central airways are clear. Foci of probable scarring are seen throughout both lungs, greatest at the lung bases. Mediastinum: There is no mediastinal lymphadenopathy. Leigh: Clear. Axillae: There is no axillary lymphadenopathy. Upper abdomen: There is a small hiatal hernia. A punctate nonobstructing calculus is seen in the left kidney on image #13. Skeletal structures: The skeletal structures are osteopenic. No lytic or blastic bony lesions are seen. Mild degenerative change of the liver, stenosis is noted in the spine. IMPRESSION: 1. There is no evidence of pulmonary embolus in the main, lobar, or segmental pulmonary arteries. 2. Cardiomegaly. 3. There is no airspace consolidation or pleural effusion. 4. Additional findings as above. ACT 112: Negative or not required by law. Electronically signed by: Donnell Bernal M.D. 05/30/2023 5:30 PM 05/31/2023 Dobutamine Stress ECHOCARDIOGRAM - Negative dobutamine stress echocardiogram for myocardia ischemia at 91% of the maximum predicted heart rate. No dobutamine induced chest pain. No EKG changes over the baseline abnormality. Baseline echocardiogram notes normal LV systolic function with mild mitral regurgitation. Hospital Course (1) Chest pain: 73yo male with history of CAD s/p CABG x 2V in presents with two days of exertional chest pain. Trop negative x 3. EKG w/p acute ischemic changes. Bradycardic at baseline, not on BB Dobutamine stress echo ordered * Interpretation: Negative dobutamine stress echocardiogram for myocardia ischemia at 91% of the maximum predicted heart rate. No dobutamine induced ch est pain. No EKG changes over the baseline abnormality. Baseline echocardiogram notes normal LV systolic function with mild mitral regurgitation. Cardiology consult cancelled per discussion w/ supervising provider No further chest pain reported since placing on protonix 40mg daily and instructed to continue at discharge. Also educated to decrease coffee consumption and take medication before eating. Also to monitor NSAID use, denied any heavy use/bleeding. Discussed he also does have component of anxiety regarding his brain lesion/neurology follow up. Discussed to reach out to office at [facility] if they do not hear from them regarding repeat MRI/neurosurgery followup. Also messaged navigator to look into seeing if follow up arranged. Discussed low dose vistaril for anxiety, defer low dose benzo to pcp in follow up He does also report some phlegm, no fever/chills, cough/sputum production. MRI noting ethmoid sinus thickening. He has ENT f/u later this month. Discussed can use some mucinex to help thin secretions in the meantime Continued ASA 81mg daily, statin as previously taking Outpatient follow up -- discussed if ongoing reflux symptoms can see about outpt referral to GI for further discussion/recs/eval (2) GERD (gastroesophageal reflux disease): Chronic. He reports an increase in GERD symptoms of late for which he has been taking TUMS Started protonix 40mg daily, resolution in CP symptoms and decision to continue 40mg daily at discharge as above. Outpt f/u PCP, discused ref to GI if any ongoing issues/bleeding reported Cautious use NSAIDs, limit caffeine/chocolate/foods that induce reflux Plan discharged home with from ER following dobutamine stress, reported chest pain free Total Time Total Time Spent Total Time Spent (In Minutes): 45 Discharge Plan Discharge Items Patient Disposition: Home - Self-Care Reason For Visit: EXERTIONAL CHEST PAIN Discharge Diagnosis: Chest pain, reflux, anxiety Condition on Discharge: Good Goals: You have been hospitalized for an acute medical problem. During your stay at [facility], we have made an effort to correct the problem that brought you to the hospital while keeping you as comfortable as possible. Medications were used to bring your condition under control and your discharge instructions will include directions for any medications you should take after leaving the hospital. Please make sure you see your Primary Care Provider as part of your follow up plan. Activity: As commented below Non-emergency contact: Primary Care Provider and Neurologist Call non-emergency contact if: you have any medication questions, your symptoms worsen and your pain is not controlled Follow-up/Referrals: Devin Christie MD [Physician] - Lori Horton MD [Primary Care Provider] - Diet: Heart Healthy Addtl Attending Provider Instructions: You have been hospitalized for chest pain. Cardiac enzymes have been negative and imaging was negative for blood clot and imaging of your heart was negative for acute ischemia. You have been started on protonix 40mg once daily for reflux and should continue this 30 minutes before eating/drinking for best effect. Please limit ibuprofen use and if still having ongoing reflux it may be worthwhile to consider referral to gastroenterology in the future. You have been sent in a prescription for Vistaril for anxiety as needed. You should have follow up with primary care/Dr Christie from Neurology for repeat brain MRI imaging. I have notified case management to reach out to Dr Campa office to ensure this gets done through Neurology but if you do not hear from them you should call their office at [phone]. Please follow up with primary care in the next 7-10 days to monitor your progress. Please return to the ER with any worsening symptoms or symptoms concerning for you. It has been a pleasure being a part of the medical team providing for you while you have been in the hospital. Take care! Pending Studies at Discharge: No Stand-Alone Forms: My [facility] [employer], Smoking Cessation Medications and DC Order Prescriptions: New pantoprazole 40 mg Tablet,Delayed Release (Dr/Ec) 40 mg PO DAILY Qty: 30 0RF hydroxyzine HCl 10 mg tablet 10 mg PO Q8H PRN (Reason: anxiety) Qty: 14 0RF guaifenesin 600 mg tablet extended release 12hr 600 mg PO BID PRN (Reason: phlegm) Qty: 30 0RF Continued rosuvastatin 10 mg tablet 10 mg PO QPM coenzyme Q10 200 mg capsule 200 mg PO DAILY aspirin [Adult Low Dose Aspirin] 81 mg tablet,delayed release (DR/EC) 81 mg PO DAILY acetaminophen [Tylenol Extra Strength] 500 mg tablet 1,000 mg PO DIRECTED PRN (Reason: Pain) Bioflex [id number] mg tablet 2 tab PO DAILY multivitamin Tablet 1 tab PO QAM fluticasone propionate 50 mcg/actuation [place],Suspension 2 spray INTRANASAL QAM Rx Instructions: administer into each nostril ibuprofen 200 mg Tablet 200 mg PO DIRECTED PRN (Reason: Pain) Cataract Eye Drops 1 drp ophthalmic (eye) DIRECTED Rx Instructions: TRIPLE MEDS POST CATARACT SURGERY. gabapentin 100 mg capsule 200 mg PO BID Rx Instructions: TAKE 2 CAPSULES BY MOUTH 3 TIMES A DAY FOR 30 DAYS Discharge Orders: Discharge Order (Routine); Ordered 05/31/23 Ordered By: Silke Don Admission Data Admit Date/Time: 05/30/23 18:44 Attending Provider: John Aaron Admit Provider: Jacquelyn Wharton Primary Care Provider: Lori Horton Other Providers: Laureano Bolanos Other Interventions: Discharge Summary Assessment (RN) Last Done: 05/31/23 12:21 Supervising Physician Co-Signing Physician Notes The patient was not seen by me. The chart was reviewed. Case discussed with KRIS Segura. Agree with assessment and plan. Stable for discharge. Coding Level of Care Code 25673 INP/OBS DISCH >30 MIN Diagnoses Chest pain R07.9 GERD (gastroesophageal reflux disease) K21.9
[2023-05-31] MEDS ORDERED: hydrOXYzine HCl 10 MG TAB PO ONE (12:15)
--- NOTE | 2023-05-31 15:01 | XCELERA ---
[id number] \\[id number]
== END 2023-05-31 12:53 | disposition home or self-care (01) ==
LOC: ED 13:18 → EDINP 13:18 → SUATTDRO 18:44 → EDINP 21:00